=== PATIENT | female | born 1960 | race Caucasian/White ===

== ENCOUNTER 2017-08-22 09:21 | Observation (INO) | payer OTHER ==
[~2017-08-22] VITALS: Ht 162.6 cm; Wt 85.5 kg
[~2017-08-22 09:21] MED LIST: ASPI325; ASPI325 PO; ATOR40TA; ATOR40TA PO; AZIT250 PO; BUME2 PO; CARV6.25; CLOP75; CLOP75 PO; COREG CR; DOXE0.5 PO; DULO60 PO; FAMO20 PO; FLUO20; FLUO20 PO; FURO20; FURO20 PO; FURO40; GABA100 PO; GLIM4; HYDACE10B PO; HYDACE5 PO; HYDACE5325 PO; INSDET100; INSLI100I SC; INSR10I; LAMO100 PO; LAMO25 PO; LEVFLO500 PO; LEVSOD25 PO; LITH300C PO; LOSA50 PO; METF500; MILRINONE; MULVITMIND PO; Myfortic360 MG PO; OXYC5 PO; POTCHL10ER PO; POTCHL20ER PO; PROCODE120 PO; Plavix75 MG PO; Prozac40 MG PO; SLO-MAG PO; SPIR25; SPIR25 PO; Synthroid25 MCG PO; TACR1 PO; VALS80 PO; [UNRECOGNIZED DRUG - OTHER]
[2017-08-22 10:42] LABS: BASOPHILS ABSOLUTE AUTO 0.05 K/mm3 (0.00-0.23); BASOPHILS PERCENT AUTO 1 % (0-2); EOSINOPHILS ABSOLUTE AUTO 0.12 K/mm3 (0.00-0.68); EOSINOPHILS PERCENT AUTO 2 % (0-6); Hematocrit 38.7 % (33.0-51.0); Hemoglobin 12.5 g/dL (11.5-16.0); IMMATURE GRAN ABSOLUTE AUTO 0.05 K/mm3 (0.00-0.10); IMMATURE GRAN PERCENT AUTO 1 % (0-1); LYMPHOCYTES ABSOLUTE AUTO 2.39 K/mm3 (0.84-5.20); LYMPHOCYTES PERCENT AUTO 34 % (21-46); MONOCYTES ABSOLUTE AUTO 0.53 K/mm3 (0.16-1.47); MONOCYTES PERCENT AUTO 8 % (4-13); Mean Corpuscular HGB 27.7 pg (26.0-34.0); Mean Corpuscular HGB Conc 32.3 g/dL (31.5-36.5); Mean Corpuscular Volume 86 fL (80-100); Mean Platelet Volume 9.1 fL (9.1-12.4); NEUTROPHILS ABSOLUTE AUTO 3.83 K/mm3 (1.96-9.15); NEUTROPHILS PERCENT AUTO 55 % (41-73); Platelet Count 363 K/mm3 (150-400); RDW Coefficient Variation 12.6 % (11.7-14.2); RDW Standard Deviation 39.4 fL (35.1-46.3); Red Blood Cell Count 4.51 M/mm3 (3.80-5.20); White Blood Cell Count 6.97 K/mm3 (4.00-11.30)
[2017-08-22 10:57] LABS: International Normalized Ratio 0.95; Prothrombin Time Results 9.9 Sec (9.7-11.5)
[2017-08-22 11:00] LABS: Albumin, Blood 3.4 g/dL (3.4-5.0); Albumin/Globulin Ratio 0.8 (0.8-1.8); Bilirubin, Total 0.3 mg/dL (0.1-1.0); Bun/Creatinine Ratio 16.9 (12.0-20.0); Calcium, Blood 9.2 mg/dL (8.5-10.1); Creatinine, Blood 1.72 mg/dL (0.40-1.00); Total Protein, Blood 7.4 g/dL (6.4-8.2)
[2017-08-23] MEDS ORDERED: AMLO5 PO (10:38)
[2017-08-23] MEDS ORDERED: VICTOZA 3-0.6 MG/0.1 SC (10:38)
[2017-10-30] MEDS ORDERED: CLOP75 PO (11:49)
[2018-05-07] MEDS ORDERED: [UNRECOGNIZED DRUG - CODE] PO (17:51)
[2018-05-08] MEDS ORDERED: ASPI81CH PO (13:22)
== END 2017-08-23 11:35 | disposition home or self-care (01) ==
LOC: ER 09:21 → MEDS 09:22 → ER 11:01 → MEDS 11:01
PROVIDERS: Emergency Medicine
DX: I63.9 Cerebral infarction, unspecified (principal); G81.91 Hemiplegia, unspecified affecting right dominant side; E11.22 Type 2 diabetes mellitus with diabetic chronic kidney disease; E11.21 Type 2 diabetes mellitus with diabetic nephropathy; I12.9 Hypertensive chronic kidney disease with stage 1 through stage 4 chronic kidney disease, or unspecified chronic kidney disease; N18.3 Chronic kidney disease, stage 3 (moderate); E89.0 Postprocedural hypothyroidism; I25.2 Old myocardial infarction; E78.5 Hyperlipidemia, unspecified; I25.10 Atherosclerotic heart disease of native coronary artery without angina pectoris; F32.9 Major depressive disorder, single episode, unspecified; N28.9 Disorder of kidney and ureter, unspecified; Z79.4 Long term (current) use of insulin; Z94.1 Heart transplant status; Z79.899 Other long term (current) drug therapy; Z88.2 Allergy status to sulfonamides; Z88.8 Allergy status to other drugs, medicaments and biological substances; Z90.49 Acquired absence of other specified parts of digestive tract; Z90.89 Acquired absence of other organs; Z95.5 Presence of coronary angioplasty implant and graft; Z95.810 Presence of automatic (implantable) cardiac defibrillator; Z98.890 Other specified postprocedural states; Z87.891 Personal history of nicotine dependence
CPT/HCPCS: 36415; 70450; 71046; 80053; 82947; 85025; 85610; 85730; 93005; 93010; 97161; 99285; G0378; G8978; G8979; G8980; J7507; J7517

== ENCOUNTER 2017-10-30 11:13 | Day surgery (SDC) | payer OTHER ==
[~2017-10-30] VITALS: Ht 160 cm; Wt 89.8 kg
[~2017-10-30 11:13] MED LIST changes: +AMLO5 PO; +VICTOZA 3-0.6 MG/0.1 SC
[2017-10-30] MEDS ORDERED: CLOP75 (11:49)
== END 2017-10-30 13:14 | disposition home or self-care (01) ==
LOC: ORSCSDS 11:13
PROVIDERS: Internal Medicine Gastroenterology
PROC: 0DBN8ZX Excision of Sigmoid Colon, Via Natural or Artificial Opening Endoscopic, Diagnostic (ICD-10-PCS; principal; 2017-10-30 12:45)
PROC: 0DBL8ZX Excision of Transverse Colon, Via Natural or Artificial Opening Endoscopic, Diagnostic (ICD-10-PCS; principal; 2017-10-30 12:45)
PROC: 0DBK8ZX Excision of Ascending Colon, Via Natural or Artificial Opening Endoscopic, Diagnostic (ICD-10-PCS; principal; 2017-10-30 12:45)
PROC: 0DBE8ZX Excision of Large Intestine, Via Natural or Artificial Opening Endoscopic, Diagnostic (ICD-10-PCS; principal; 2017-10-30 12:45)
DX: Z12.11 Encounter for screening for malignant neoplasm of colon (principal); D12.2 Benign neoplasm of ascending colon; D12.3 Benign neoplasm of transverse colon; D12.5 Benign neoplasm of sigmoid colon; E11.9 Type 2 diabetes mellitus without complications; J44.9 Chronic obstructive pulmonary disease, unspecified; I10 Essential (primary) hypertension; Z95.0 Presence of cardiac pacemaker; I50.9 Heart failure, unspecified; I25.2 Old myocardial infarction; Z87.891 Personal history of nicotine dependence; Z79.4 Long term (current) use of insulin; Z79.899 Other long term (current) drug therapy; E66.9 Obesity, unspecified; Z68.33 Body mass index [BMI] 33.0-33.9, adult
CPT/HCPCS: 82947; 88305

== ENCOUNTER 2019-10-10 13:46 | Emergency (ER) | payer BC, OTHER ==
[~2019-10-10] VITALS: Ht 157.5 cm; Wt 83.9 kg
[~2019-10-10 13:46] MED LIST changes: +ASPI81CH PO; +[UNRECOGNIZED DRUG - CODE] PO
[2019-10-10 14:31] LABS: BASOPHILS ABSOLUTE AUTO 0.05 K/mm3 (0.00-0.23); BASOPHILS PERCENT AUTO 1 % (0-2); EOSINOPHILS ABSOLUTE AUTO 0.14 K/mm3 (0.00-0.68); EOSINOPHILS PERCENT AUTO 2 % (0-6); Hematocrit 36.8 % (33.0-51.0); Hemoglobin 11.6 g/dL (11.5-16.0); IMMATURE GRAN ABSOLUTE AUTO 0.02 K/mm3 (0.00-0.10); IMMATURE GRAN PERCENT AUTO 0 % (0-1); LYMPHOCYTES ABSOLUTE AUTO 2.08 K/mm3 (0.84-5.20); LYMPHOCYTES PERCENT AUTO 28 % (21-46); MONOCYTES ABSOLUTE AUTO 0.73 K/mm3 (0.16-1.47); MONOCYTES PERCENT AUTO 10 % (4-13); Mean Corpuscular HGB 27.8 pg (26.0-34.0); Mean Corpuscular HGB Conc 31.5 g/dL (31.5-36.5); Mean Corpuscular Volume 88 fL (80-100); Mean Platelet Volume 9.4 fL (9.1-12.4); NEUTROPHILS ABSOLUTE AUTO 4.36 K/mm3 (1.96-9.15); NEUTROPHILS PERCENT AUTO 59 % (41-73); Platelet Count 338 K/mm3 (150-400); RDW Coefficient Variation 12.6 % (11.7-14.2); RDW Standard Deviation 40.9 fL (35.1-46.3); Red Blood Cell Count 4.18 M/mm3 (3.80-5.20); White Blood Cell Count 7.38 K/mm3 (4.00-11.30)
[2019-10-10 14:48] LABS: Albumin, Blood 3.5 g/dL (3.4-5.0); Bilirubin, Total 0.4 mg/dL (0.1-1.0); Bun/Creatinine Ratio 15.8 (12.0-20.0); Creatinine, Blood 2.59 mg/dL (0.40-1.00); Globulin, Blood 3.6 g/dL (2.2-4.0); Potassium, Blood 4.6 mmol/L (3.5-5.5); Total Protein, Blood 7.1 g/dL (6.4-8.2)
== END 2019-10-10 16:17 | disposition home or self-care (01) ==
LOC: ER 13:46
PROVIDERS: Nurse Practitioner
DX: R47.01 Aphasia (principal); E11.9 Type 2 diabetes mellitus without complications; I25.2 Old myocardial infarction; I11.0 Hypertensive heart disease with heart failure; I50.9 Heart failure, unspecified; Z94.1 Heart transplant status; Z86.73 Personal history of transient ischemic attack (TIA), and cerebral infarction without residual deficits; Z87.891 Personal history of nicotine dependence; Z88.2 Allergy status to sulfonamides; Z88.8 Allergy status to other drugs, medicaments and biological substances; Z79.4 Long term (current) use of insulin; Z79.899 Other long term (current) drug therapy; Z79.82 Long term (current) use of aspirin
CPT/HCPCS: 36415; 70450; 80053; 85025; 93005; 93010; 99285-25

== ENCOUNTER 2020-09-24 18:01 | Observation (INO) | payer OTHER ==
[~2020-09-24] VITALS: Ht 160 cm; Wt 80.6 kg
[~2020-09-24 18:01] MED LIST changes: -ASPI81CH PO; +Aspirin EC81 MG PO; +Hair, Skin & N1 EACH PO; -MULVITMIND PO
[2020-09-24 19:06] LABS: BASOPHILS ABSOLUTE AUTO 0.01 K/mm3 (0.00-0.23); BASOPHILS PERCENT AUTO 0 % (0-2); EOSINOPHILS ABSOLUTE AUTO 0.01 K/mm3 (0.00-0.68); EOSINOPHILS PERCENT AUTO 0 % (0-6); Hematocrit 34.1 % (33.0-51.0); Hemoglobin 10.8 g/dL (11.5-16.0); IMMATURE GRAN ABSOLUTE AUTO 0.02 K/mm3 (0.00-0.10); IMMATURE GRAN PERCENT AUTO 0 % (0-1); LYMPHOCYTES ABSOLUTE AUTO 2.11 K/mm3 (0.84-5.20); LYMPHOCYTES PERCENT AUTO 37 % (21-46); MONOCYTES ABSOLUTE AUTO 0.74 K/mm3 (0.16-1.47); MONOCYTES PERCENT AUTO 13 % (4-13); Mean Corpuscular HGB 26.9 pg (26.0-34.0); Mean Corpuscular HGB Conc 31.7 g/dL (31.5-36.5); Mean Corpuscular Volume 85 fL (80-100); Mean Platelet Volume 9.6 fL (9.1-12.4); NEUTROPHILS ABSOLUTE AUTO 2.78 K/mm3 (1.96-9.15); NEUTROPHILS PERCENT AUTO 49 % (41-73); Platelet Count 305 K/mm3 (150-400); RDW Coefficient Variation 13.3 % (11.7-14.2); RDW Standard Deviation 41.9 fL (35.1-46.3); Red Blood Cell Count 4.01 M/mm3 (3.80-5.20); White Blood Cell Count 5.67 K/mm3 (4.00-11.30)
[2020-09-24 19:37] LABS: Albumin, Blood 3.8 g/dL (3.4-5.0); Bilirubin, Total 0.3 mg/dL (0.1-1.0); Bun/Creatinine Ratio 17.4 (12.0-20.0); Calcium, Blood 8.7 mg/dL (8.5-10.1); Creatinine, Blood 3.11 mg/dL (0.40-1.00); Globulin, Blood 3.8 g/dL (2.2-4.0); Potassium, Blood 4.2 mmol/L (3.5-5.5); Total Protein, Blood 7.6 g/dL (6.4-8.2)
[2020-09-24 19:55] LABS: Magnesium, Blood 1.6 mg/dL (1.6-2.4); Troponin I <0.015 ng/mL (0.000-0.040)
[2020-09-24 20:15] LABS: Influenza A, PCR NEGATIVE (NEGATIVE); Influenza B, PCR NEGATIVE (NEGATIVE); Resp Syncytial Virus, PCR NEGATIVE (NEGATIVE)
[2020-09-24 20:17] LABS: Source, Urine Clean Catch
[2020-09-24 20:18] LABS: SARS-Cov-2 (COVID-19) PCR, MMC POSITIVE (NEGATIVE)
[2020-09-24 20:25] LABS: Bilirubin, Urine Neg (Neg); Blood, Urine 3+ (Neg); Glucose Qualitative, Urine Neg (Neg); Ketones, Urine Neg (Neg); Leukocyte Esterase, Urine 2+ (Neg); Nitrite, Urine Neg (Neg); Protein, Urine 4+ (Neg); Urobilinogen, Urine NORM (Normal)
[2020-09-24 20:31] LABS: Appearance, Urine Hazy (Clear); Color, Urine Pale Yellow (P-Yellow)
[2020-09-24 20:39] LABS: WBC Cast 0-2 /lpf (0)
[2020-09-24 20:41] LABS: Bacteria Many /hpf; Red Blood Cells, Urine 0-2 /hpf (0-2); Squamous Epithelial Cells Few /hpf (Few)
[2020-09-24 20:42] LABS: Hyaline Casts 0-2 /lpf (0-2)
[2020-09-24] MEDS ORDERED: VITAMIN D5000 UNIT PO (21:40)
[2020-09-24] MEDS ORDERED: LIPITOR80 MG PO (21:41)
[2020-09-24] MEDS ORDERED: LOSARTAN POTASS25 M2 PO (21:42)
[2020-09-24] MEDS ORDERED: EZETIMIBE10 M6 PO (21:42)
[2020-09-24] MEDS ORDERED: LAMOTRIGINE100 M1 PO (21:42)
[2020-09-24] MEDS ORDERED: MYCOPHENOLIC A PO (21:44)
[2020-09-24] MEDS ORDERED: TACROLIMUS PO (21:46)
--- NOTE | 2020-09-25 04:25 | NUR ---
SHIFT SUMMARY ADMITTED FROM ER THIS SHIFT. COVID 19+ INFECTION/IMMUNOSUPPRESSED/SOB. FULL CODE. CONTACT PRECAUTIONS. GENTLE IV FLUID REHYDRATION GIVEN IN ER, FINISHING UP LAST OF THOSE TWO BAGS ON FLOOR. HX OF HEART TRANSPLANT IN 2010. CHEST XRAY REVEALS POSSIBLE RT LOWER LOBE PNEUMONIA. UTI IS ALSO POSSIBLE BUT PT DENIES S/SX. PLAN IS FOR NURSING STAFF TO PERFORM AN AMBULATORY O2 SATURATION TRIAL TODAY. SHE IS ON PLAVIX. SHE IS A&O X4, INDEPENDENT. PAIN MEDICATION ADMINISTERED 1X THIS SHIFT, NAUSEA MEDICATION ADMINISTERED 1X THIS SHIFT.
--- NOTE | 2020-09-25 04:38 | NUR ---
RETAIL ASSET PROTECTION SPECIALIST/CTA I HAVE READ THIS RETAIL ASSET PROTECTION SPECIALIST'S DOCUMENTATION AND HAVING PERFORMED MY OWN ASSESSMENT ON THE PT, I CONCUR WITH HER DOCUMENTATION. DARIA.CLC
[2020-09-25 05:14] LABS: BASOPHILS ABSOLUTE AUTO 0.01 K/mm3 (0.00-0.23); BASOPHILS PERCENT AUTO 0 % (0-2); EOSINOPHILS ABSOLUTE AUTO 0.02 K/mm3 (0.00-0.68); EOSINOPHILS PERCENT AUTO 1 % (0-6); Hematocrit 31.5 % (33.0-51.0); IMMATURE GRAN ABSOLUTE AUTO 0.01 K/mm3 (0.00-0.10); IMMATURE GRAN PERCENT AUTO 0 % (0-1); LYMPHOCYTES ABSOLUTE AUTO 1.52 K/mm3 (0.84-5.20); LYMPHOCYTES PERCENT AUTO 39 % (21-46); MONOCYTES ABSOLUTE AUTO 0.51 K/mm3 (0.16-1.47); MONOCYTES PERCENT AUTO 13 % (4-13); Mean Corpuscular HGB 27.5 pg (26.0-34.0); Mean Corpuscular HGB Conc 31.7 g/dL (31.5-36.5); Mean Corpuscular Volume 87 fL (80-100); Mean Platelet Volume 9.9 fL (9.1-12.4); NEUTROPHILS ABSOLUTE AUTO 1.81 K/mm3 (1.96-9.15); NEUTROPHILS PERCENT AUTO 47 % (41-73); Platelet Count 230 K/mm3 (150-400); RDW Coefficient Variation 13.4 % (11.7-14.2); Red Blood Cell Count 3.64 M/mm3 (3.80-5.20); White Blood Cell Count 3.88 K/mm3 (4.00-11.30)
[2020-09-25 05:36] LABS: Albumin/Globulin Ratio 0.9 (0.8-1.8); Bilirubin, Total 0.4 mg/dL (0.1-1.0); Bun/Creatinine Ratio 17.6 (12.0-20.0); Calcium, Blood 8.4 mg/dL (8.5-10.1); Creatinine, Blood 2.79 mg/dL (0.40-1.00); Globulin, Blood 3.4 g/dL (2.2-4.0); Potassium, Blood 3.9 mmol/L (3.5-5.5); Total Protein, Blood 6.4 g/dL (6.4-8.2)
--- NOTE | 2020-09-25 17:40 | NUR ---
RISING BLOOD SUGARS CALLED DR. JIMENEZ ABOUT RISING BLOOD SUGARS. RECOMMENDED CHANGE IN CORRECTION SCALE. T.O. FROM DR. JIMENEZ TO CHANGE TO HIGH CS AC AND GIVE 10 U LANTUS AT BEDTIME. EMAR UPDATED.
--- NOTE | 2020-09-25 18:07 | NUR ---
Shift Summary A/Ox4, pleasant and cooperative with care. Up independently in room. Calls for needs appropriately. Medicated for aches/pain in BLE x 3 per EMAR with good effect. Also medicated x 1 for nausea. Appetite is good. Oxygen sats checked while ambulating 50 feet in room, patient maintained 97-98% on RA with activity though did report some shortness of breath. Xarelto for DVT prophylaxis. No acute changes, WCTM.
--- NOTE | 2020-09-26 05:13 | NUR ---
CITY COUNCIL MEMBER SUMMARY NO ACUTE CHANGES THIS SHIFT. PT AAOX4 AND INDEPENDENT IN ROOM. PLEASANT AND COOPERATIVE. REMAINS ON RA WITH O2 SATS MAINTAINING >95%. PT REPORTED SOME CHILLS AT START OF SHIFT BUT WAS AFEBRILE. MEDICATED FOR HIP AND LEG PAIN X1 WITH FENTANYL 50 MCG. CBG AT HS WAS >400. GIVEN SCHEDULED 10 UNITS OF SEMGLEE AND RECIEVED ADDITIONAL ORDER FROM HOSPITALIST DWAYNE MODI FOR AN ADDITIONAL 10 UNITS OF HUMALOG. VSS, WILL CONTINUE TO MONITOR.
[2020-09-26 08:50] LABS: Bun/Creatinine Ratio 16.2 (12.0-20.0); Calcium, Blood 8.3 mg/dL (8.5-10.1); Creatinine, Blood 2.65 mg/dL (0.40-1.00); Potassium, Blood 4.9 mmol/L (3.5-5.5)
[2020-09-26] MEDS ORDERED: XARELTO20 MG PO (11:18)
--- NOTE | 2020-09-26 11:51 | NUR ---
Discharge Summary AOx4, discharge to home. Reviewed discharge paperwork with patient, no questions at this time. Copy given. Med faxed to [facility]. IV removed, WNL. Personal belongings sent home. Escorted by this RN via w/c. Personal vehicle for transport.
== END 2020-09-26 11:43 | disposition home or self-care (01) ==
LOC: ER 18:01 → MEDS 18:02 → ENPENDDIS 09-26 10:57 → MEDS 09-26 11:43
PROVIDERS: Emergency Medicine; Internal Medicine; Physician Assistant; ADMIT Internal Medicine
DX: U07.1 COVID-19 (principal); N17.9 Acute kidney failure, unspecified; I12.9 Hypertensive chronic kidney disease with stage 1 through stage 4 chronic kidney disease, or unspecified chronic kidney disease; E11.22 Type 2 diabetes mellitus with diabetic chronic kidney disease; N18.4 Chronic kidney disease, stage 4 (severe); I25.2 Old myocardial infarction; E78.5 Hyperlipidemia, unspecified; E86.0 Dehydration; E89.0 Postprocedural hypothyroidism; Z94.1 Heart transplant status; Z86.73 Personal history of transient ischemic attack (TIA), and cerebral infarction without residual deficits; Z79.4 Long term (current) use of insulin; Z79.82 Long term (current) use of aspirin; Z79.02 Long term (current) use of antithrombotics/antiplatelets; Z88.2 Allergy status to sulfonamides; Z88.8 Allergy status to other drugs, medicaments and biological substances; Z95.5 Presence of coronary angioplasty implant and graft
CPT/HCPCS: 0241U; 36415; 71046; 80048; 80053; 81001; 82947; 83605; 83690; 83735; 83880; 84145; 84484; 85025; 87040; 87077; 87086; 87186; 93005; 93010; 96361; 96365; 96375; 96376; 99285-25; A9270; G0378; J0696; J2270; J2405; J3010; J7120; J7507

== ENCOUNTER 2020-09-28 07:52 | Emergency (ER) | payer OTHER ==
[~2020-09-28] VITALS: Ht 160 cm; Wt 78.0 kg
[~2020-09-28 07:52] MED LIST changes: +EZETIMIBE10 M6 PO; +LAMOTRIGINE100 M1 PO; +LIPITOR80 MG PO; +LOSARTAN POTASS25 M2 PO; +MYCOPHENOLIC A PO; +TACROLIMUS PO; +VITAMIN D5000 UNIT PO; +XARELTO20 MG PO
[2020-09-28 08:45] LABS: BASOPHILS ABSOLUTE AUTO 0.02 K/mm3 (0.00-0.23); BASOPHILS PERCENT AUTO 0 % (0-2); EOSINOPHILS ABSOLUTE AUTO 0.01 K/mm3 (0.00-0.68); EOSINOPHILS PERCENT AUTO 0 % (0-6); Hematocrit 36.5 % (33.0-51.0); Hemoglobin 11.3 g/dL (11.5-16.0); IMMATURE GRAN ABSOLUTE AUTO 0.03 K/mm3 (0.00-0.10); IMMATURE GRAN PERCENT AUTO 0 % (0-1); LYMPHOCYTES ABSOLUTE AUTO 1.13 K/mm3 (0.84-5.20); LYMPHOCYTES PERCENT AUTO 17 % (21-46); MONOCYTES ABSOLUTE AUTO 0.58 K/mm3 (0.16-1.47); MONOCYTES PERCENT AUTO 9 % (4-13); Mean Corpuscular HGB 27.3 pg (26.0-34.0); Mean Corpuscular Volume 88 fL (80-100); Mean Platelet Volume 9.5 fL (9.1-12.4); NEUTROPHILS ABSOLUTE AUTO 5.02 K/mm3 (1.96-9.15); NEUTROPHILS PERCENT AUTO 74 % (41-73); Platelet Count 305 K/mm3 (150-400); RDW Coefficient Variation 13.3 % (11.7-14.2); RDW Standard Deviation 42.9 fL (35.1-46.3); Red Blood Cell Count 4.14 M/mm3 (3.80-5.20); White Blood Cell Count 6.79 K/mm3 (4.00-11.30)
[2020-09-28 09:04] LABS: International Normalized Ratio 1.02; Prothrombin Time Results 10.9 Sec (9.7-11.5)
[2020-09-28 09:15] LABS: Alanine Aminotransfer (ALT/SGP 62 U/L (12-78); Albumin, Blood 3.3 g/dL (3.4-5.0); Albumin/Globulin Ratio 0.8 (0.8-1.8); Alk Phos 141 U/L (50-136); Anion Gap 7 mmol/L (6-16); Aspartate Aminotrans (AST/SGOT 31 U/L (12-37); Bilirubin, Total 0.3 mg/dL (0.1-1.0); Blood Urea Nitrogen 34 mg/dL (8-24); Bun/Creatinine Ratio 13.9 (12.0-20.0); CO2, Blood 23 mmol/L (21-32); Calcium, Blood 8.5 mg/dL (8.5-10.1); Chloride, Blood 111 mmol/L (98-108); Creatinine, Blood 2.45 mg/dL (0.40-1.00); Glomerular Filtration Rate 22 (60-); Glucose, Blood 222 mg/dL (70-99); Potassium, Blood 4.5 mmol/L (3.5-5.5); Sodium, Blood 141 mmol/L (136-145); Total Protein, Blood 7.3 g/dL (6.4-8.2); Troponin I <0.015 ng/mL (0.000-0.040)
[2020-09-28] MEDS ORDERED: PROM25 PO (12:41)
[2020-09-28] MEDS ORDERED: PROC5 PO (12:41)
[2020-09-28] MEDS ORDERED: PHENERGAN25 MG PR (12:41)
[2020-09-28] MEDS ORDERED: ONDA4ODT MM (12:41)
[2020-09-28] MEDS ORDERED: Percocet 5-3251 EACH PO (12:46)
== END 2020-09-28 13:52 | disposition home or self-care (01) ==
LOC: ER 07:52
PROVIDERS: Physician Assistant
DX: U07.1 COVID-19 (principal); J12.82 Pneumonia due to coronavirus disease 2019; R19.7 Diarrhea, unspecified; R11.2 Nausea with vomiting, unspecified; R07.9 Chest pain, unspecified; E11.9 Type 2 diabetes mellitus without complications; E78.5 Hyperlipidemia, unspecified; I11.0 Hypertensive heart disease with heart failure; I50.9 Heart failure, unspecified; Z79.4 Long term (current) use of insulin
CPT/HCPCS: 36415; 71045; 80053; 80197; 83605; 83880; 84145; 84484; 85025; 85610; 85730; 87040; 93005; 93010; 96365; 96375; 96376; 99284-25; J0500; J0696; J2405; J3010; J7030

== ENCOUNTER 2020-09-30 14:57 | Inpatient (IN) | payer OTHER ==
[~2020-09-30] VITALS: Ht 160 cm; Wt 78.0 kg
== END 2020-10-05 13:37 | disposition short-term general hospital (02) | DRG 177 ==
LOC: ER 14:57 → MEDS 14:58
PROVIDERS: ADMIT Internal Medicine
PROC: 8E0ZXY6 Isolation (ICD-10-PCS; principal; 2020-10-03)
PROC: 3E0D73Z Introduction of Anti-inflammatory into Mouth and Pharynx, Via Natural or Artificial Opening (ICD-10-PCS; 2020-10-03)
DX: U07.1 COVID-19 (principal); J12.82 Pneumonia due to coronavirus disease 2019; I13.0 Hypertensive heart and chronic kidney disease with heart failure and stage 1 through stage 4 chronic kidney disease, or unspecified chronic kidney disease; Z94.1 Heart transplant status; N17.9 Acute kidney failure, unspecified; Z96.41 Presence of insulin pump (external) (internal); E78.5 Hyperlipidemia, unspecified; E89.0 Postprocedural hypothyroidism; E66.9 Obesity, unspecified; I50.9 Heart failure, unspecified; N18.9 Chronic kidney disease, unspecified; F41.9 Anxiety disorder, unspecified; E11.22 Type 2 diabetes mellitus with diabetic chronic kidney disease; Z86.73 Personal history of transient ischemic attack (TIA), and cerebral infarction without residual deficits; Z98.890 Other specified postprocedural states; Z90.49 Acquired absence of other specified parts of digestive tract; I25.2 Old myocardial infarction; Z88.8 Allergy status to other drugs, medicaments and biological substances; Z88.2 Allergy status to sulfonamides; Z90.89 Acquired absence of other organs; Z95.5 Presence of coronary angioplasty implant and graft; Z95.810 Presence of automatic (implantable) cardiac defibrillator; Z87.891 Personal history of nicotine dependence; Z79.4 Long term (current) use of insulin; Z79.02 Long term (current) use of antithrombotics/antiplatelets; Z79.899 Other long term (current) drug therapy; Z79.82 Long term (current) use of aspirin; Z68.30 Body mass index [BMI] 30.0-30.9, adult
CPT/HCPCS: 0202U; 36415; 71045; 80048; 80053; 80197; 81001; 82947; 83605; 83880; 84145; 84443; 84484; 85025; 85027; 85379; 85651; 86140; 87040; 87086; 93005; 93010; 94640; 94667; 94760; 94762; 96365; 96375; 96376; 97110; 97161; 99285-25; A9270; G0378; J0360; J0692; J1650; J1940; J2405; J2765; J3010; J7030; J7507

== ENCOUNTER → 2022-04-09 | Outpatient (CLI) | payer OTHER ==
[~2022-04-09] MED LIST changes: +EZET10 PO; +METPHE5 PO; +ONDA4ODT MM; +PHENERGAN25 MG PR; +PROC5 PO; +PROM25 PO; +Percocet 5-3251 EACH PO
== END | disposition home or self-care (01) ==
LOC: LAB SHORT 16:20 → LAB 16:20
PROVIDERS: Hospitalist
DX: Z12.4 Encounter for screening for malignant neoplasm of cervix (principal)
CPT/HCPCS: G0145

== ENCOUNTER 2022-10-24 06:14 | Day surgery (SDC) | payer OTHER ==
[~2022-10-24] VITALS: Ht 160 cm; Wt 79.6 kg
[2022-10-24] MEDS ORDERED: FURO80 (06:34)
[2022-10-24] MEDS ORDERED: ATOR80 (06:35)
[2022-10-24] MEDS ORDERED: EZET10 (06:35)
[2022-10-24] MEDS ORDERED: LEVSOD25 (06:35)
[2022-10-24] MEDS ORDERED: [UNRECOGNIZED DRUG - CODE] (06:38)
[2022-10-24] MEDS ORDERED: METO25ER (06:39)
--- NOTE | 2022-10-24 06:49 | NUR ---
10/24/22 0649 Estefany Reyna TETRACAINE TO RIGHT EYE AT 0635 [place] TO RIGHT EYE [place] 0638 BY [facility].KXW
[2022-10-24 08:02] VITALS: BP 114/79
--- NOTE | 2022-10-24 08:21 | NUR ---
10/24/22 0821 Corona Huynh IV REMOVED.
== END 2022-10-24 08:20 | disposition home or self-care (01) ==
LOC: ORSCSDS 06:14
PROVIDERS: Ophthalmology
PROC: 08DJ3ZZ Extraction of Right Lens, Percutaneous Approach (ICD-10-PCS; principal; 2022-10-24 07:30)
DX: E11.36 Type 2 diabetes mellitus with diabetic cataract (principal); H25.11 Age-related nuclear cataract, right eye; E03.9 Hypothyroidism, unspecified; I25.2 Old myocardial infarction; Z86.73 Personal history of transient ischemic attack (TIA), and cerebral infarction without residual deficits; G47.33 Obstructive sleep apnea (adult) (pediatric); I12.9 Hypertensive chronic kidney disease with stage 1 through stage 4 chronic kidney disease, or unspecified chronic kidney disease; E11.22 Type 2 diabetes mellitus with diabetic chronic kidney disease; N18.9 Chronic kidney disease, unspecified; Z79.4 Long term (current) use of insulin; Z79.82 Long term (current) use of aspirin; Z79.899 Other long term (current) drug therapy
CPT/HCPCS: 82947; J2001; J2250; J3010; J3301; J7040; V2632

== ENCOUNTER 2022-11-14 07:30 | Day surgery (SDC) | payer OTHER ==
[~2022-11-14] VITALS: Ht 160 cm; Wt 79.0 kg
[~2022-11-14 07:30] MED LIST changes: +ATOR80; +EZET10; +FURO80; +LEVSOD25; +METO25ER; +[UNRECOGNIZED DRUG - CODE]
--- NOTE | 2022-11-14 08:45 | NUR ---
11/14/22 0845 Lesvia Magallanes 0819 ADRIENNE 0838
[2022-11-14 09:56] VITALS: BP 170/83
== END 2022-11-14 10:05 | disposition home or self-care (01) ==
LOC: ORSCSDS 07:30
PROVIDERS: Ophthalmology
PROC: 08DK3ZZ Extraction of Left Lens, Percutaneous Approach (ICD-10-PCS; principal; 2022-11-14 09:00)
DX: E11.36 Type 2 diabetes mellitus with diabetic cataract (principal); H25.12 Age-related nuclear cataract, left eye; I13.10 Hypertensive heart and chronic kidney disease without heart failure, with stage 1 through stage 4 chronic kidney disease, or unspecified chronic kidney disease; E11.22 Type 2 diabetes mellitus with diabetic chronic kidney disease; N18.4 Chronic kidney disease, stage 4 (severe); Z86.73 Personal history of transient ischemic attack (TIA), and cerebral infarction without residual deficits; F32.A Depression, unspecified; Z94.1 Heart transplant status; E78.5 Hyperlipidemia, unspecified; E03.9 Hypothyroidism, unspecified; G62.9 Polyneuropathy, unspecified; U09.9 Post COVID-19 condition, unspecified; Z87.891 Personal history of nicotine dependence; Z79.4 Long term (current) use of insulin; Z79.82 Long term (current) use of aspirin; Z79.899 Other long term (current) drug therapy
CPT/HCPCS: 82947; J2250; J3010; J3301; J7040; V2632

== ENCOUNTER 2022-11-20 15:22 | Emergency (ER) | payer OTHER ==
[~2022-11-20] VITALS: Ht 160 cm; Wt 75.3 kg
[2022-11-20 16:00] LABS: BASOPHILS ABSOLUTE AUTO 0.06 K/mm3 (0.00-0.23); BASOPHILS PERCENT AUTO 1 % (0-2); EOSINOPHILS ABSOLUTE AUTO 0.06 K/mm3 (0.00-0.68); EOSINOPHILS PERCENT AUTO 1 % (0-6); Hematocrit 36.4 % (33.0-51.0); IMMATURE GRAN ABSOLUTE AUTO 0.03 K/mm3 (0.00-0.10); IMMATURE GRAN PERCENT AUTO 0 % (0-1); LYMPHOCYTES ABSOLUTE AUTO 2.42 K/mm3 (0.84-5.20); LYMPHOCYTES PERCENT AUTO 23 % (21-46); MONOCYTES ABSOLUTE AUTO 0.72 K/mm3 (0.16-1.47); MONOCYTES PERCENT AUTO 7 % (4-13); Mean Corpuscular HGB 29.1 pg (26.0-34.0); Mean Corpuscular Volume 88 fL (80-100); Mean Platelet Volume 9.8 fL (9.1-12.4); NEUTROPHILS ABSOLUTE AUTO 7.09 K/mm3 (1.96-9.15); NEUTROPHILS PERCENT AUTO 68 % (41-73); Platelet Count 359 K/mm3 (150-400); RDW Coefficient Variation 12.8 % (11.7-14.2); RDW Standard Deviation 41.1 fL (35.1-46.3); Red Blood Cell Count 4.13 M/mm3 (3.80-5.20); White Blood Cell Count 10.38 K/mm3 (4.00-11.30)
[2022-11-20 16:27] LABS: Albumin, Blood 3.5 g/dL (3.4-5.0); Albumin/Globulin Ratio 0.9 (0.8-1.8); Bilirubin, Total 0.3 mg/dL (0.1-1.0); Bun/Creatinine Ratio 9.1 (12.0-20.0); Calcium, Blood 9.3 mg/dL (8.5-10.1); Creatinine, Blood 7.93 mg/dL (0.40-1.00); Globulin, Blood 3.8 g/dL (2.2-4.0); Magnesium, Blood 2.3 mg/dL (1.6-2.4); Potassium, Blood 4.5 mmol/L (3.5-5.5); Total Protein, Blood 7.3 g/dL (6.4-8.2)
[2022-11-20 19:45] VITALS: BP 131/65
== END 2022-11-20 20:47 | disposition home or self-care (01) ==
LOC: ER 15:22
PROVIDERS: Physician Assistant
DX: E86.0 Dehydration (principal); I25.2 Old myocardial infarction; I13.0 Hypertensive heart and chronic kidney disease with heart failure and stage 1 through stage 4 chronic kidney disease, or unspecified chronic kidney disease; E11.22 Type 2 diabetes mellitus with diabetic chronic kidney disease; I50.9 Heart failure, unspecified; N18.9 Chronic kidney disease, unspecified; E78.5 Hyperlipidemia, unspecified; Z79.890 Hormone replacement therapy; Z79.4 Long term (current) use of insulin; Z79.899 Other long term (current) drug therapy; Z88.2 Allergy status to sulfonamides; Z88.8 Allergy status to other drugs, medicaments and biological substances; Z86.73 Personal history of transient ischemic attack (TIA), and cerebral infarction without residual deficits; Z87.891 Personal history of nicotine dependence; Z95.5 Presence of coronary angioplasty implant and graft
CPT/HCPCS: 71046; 80053; 83735; 84100; 84484; 85025; J7030

== ENCOUNTER 2022-12-31 12:48 | Emergency (ER) | payer OTHER ==
[~2022-12-31] VITALS: Ht 160 cm; Wt 74.4 kg
[~2022-12-31 12:48] MED LIST changes: -METO25ER; +METO25ER PO
[2022-12-31 13:49] LABS: BASOPHILS ABSOLUTE AUTO 0.03 K/mm3 (0.00-0.23); BASOPHILS PERCENT AUTO 0 % (0-2); EOSINOPHILS ABSOLUTE AUTO 0.05 K/mm3 (0.00-0.68); EOSINOPHILS PERCENT AUTO 1 % (0-6); Hemoglobin 10.4 g/dL (11.5-16.0); IMMATURE GRAN ABSOLUTE AUTO 0.06 K/mm3 (0.00-0.10); IMMATURE GRAN PERCENT AUTO 1 % (0-1); LYMPHOCYTES ABSOLUTE AUTO 1.93 K/mm3 (0.84-5.20); LYMPHOCYTES PERCENT AUTO 28 % (21-46); MONOCYTES ABSOLUTE AUTO 0.52 K/mm3 (0.16-1.47); MONOCYTES PERCENT AUTO 8 % (4-13); Mean Corpuscular HGB 27.8 pg (26.0-34.0); Mean Corpuscular HGB Conc 32.5 g/dL (31.5-36.5); Mean Corpuscular Volume 86 fL (80-100); Mean Platelet Volume 9.8 fL (9.1-12.4); NEUTROPHILS ABSOLUTE AUTO 4.25 K/mm3 (1.96-9.15); NEUTROPHILS PERCENT AUTO 62 % (41-73); Platelet Count 314 K/mm3 (150-400); RDW Standard Deviation 37.8 fL (35.1-46.3); Red Blood Cell Count 3.74 M/mm3 (3.80-5.20); White Blood Cell Count 6.84 K/mm3 (4.00-11.30)
[2022-12-31 14:19] LABS: Albumin, Blood 3.5 g/dL (3.4-5.0); Bilirubin, Total 0.3 mg/dL (0.1-1.0); Bun/Creatinine Ratio 7.5 (12.0-20.0); Calcium, Blood 8.6 mg/dL (8.5-10.1); Creatinine, Blood 13.3 mg/dL (0.40-1.00); Globulin, Blood 3.5 g/dL (2.2-4.0); Potassium, Blood 4.6 mmol/L (3.5-5.5)
[2022-12-31 14:20] LABS: Source, Urine Clean Catch
[2022-12-31 14:32] LABS: Appearance, Urine Cloudy (Clear); Bilirubin, Urine Neg (Neg); Blood, Urine 3+ (Neg); Glucose Qualitative, Urine 3+ (Neg); Ketones, Urine Neg (Neg); Leukocyte Esterase, Urine 3+ (Neg); Nitrite, Urine Neg (Neg); Protein, Urine 3+ (Neg); Specific Gravity, Urine 1.015 (1.003-1.022); Urobilinogen, Urine NORM (Normal)
[2022-12-31 15:46] LABS: Color, Urine Pale Yellow (P-Yellow)
[2022-12-31 15:48] LABS: Mucus Light (0-Heavy); Squamous Epithelial Cells Mod /hpf (Few); Transitional Epithelial Cells Few /hpf (0-Rare); White Blood Cells, Urine TNTC /hpf (0-5)
[2022-12-31 15:49] LABS: Amorphous Light (0-Heavy); Bacteria Many /hpf
[2022-12-31 20:00] LABS: Influenza A, PCR NEGATIVE (NEGATIVE); Influenza B, PCR NEGATIVE (NEGATIVE); Resp Syncytial Virus, PCR NEGATIVE (NEGATIVE); SARS-Cov-2 (COVID-19) PCR, MMC NEGATIVE (NEGATIVE)
[2022-12-31 20:28] LABS: Body Fluid WBC Count 160 /mm3 (0-999)
--- NOTE | 2022-12-31 20:39 | NUR ---
DIALYSIS-PD CALLED BY DR WHITMORE TO DRAW LAB SAMPLE FROM PD. TOOK A SAMPLE FROM PD PORT PER PROTOCAL. PT SAYS LAST FILL IS 300 ML. BUT ONLY ABLE TO GET SMALL AMT TO DRAIN IN BAG. LABELED AND HAND CARRIED TO LAB.
[2022-12-31 20:46] LABS: Appearance, Body Fluid Clear (Clear); Color, Body Fluid L Yellow (None-Yellow); RBC Count, Body Fluid 5 /mm3 (0-0)
[2022-12-31] MEDS ORDERED: CEFP200 PO (21:59)
[2022-12-31 22:00] VITALS: BP 166/91
[2022-12-31 22:09] LABS: Total Cell Count, Body Fluid 100
[2023-01-02] MEDS ORDERED: MYCOPHENOLIC ACID PO (15:08)
[2023-01-02] MEDS ORDERED: FURO80 PO (15:08)
[2023-01-02] MEDS ORDERED: TACR1 PO (15:09)
[2023-01-02] MEDS ORDERED: HUMALOG100 UNIT/1 SC (15:09)
[2023-01-02] MEDS ORDERED: AMLO5 PO (15:11)
[2023-01-02] MEDS ORDERED: Vitamin D1000 UNI1 PO (15:23)
[2023-01-02] MEDS ORDERED: RAYALDEE30 MCG PO (15:23)
== END 2022-12-31 22:20 | disposition home or self-care (01) ==
LOC: ER 12:48
PROVIDERS: Emergency Medicine; Hospitalist; Student in an Organized Health Care Education/Training Program
DX: R29.898 Other symptoms and signs involving the musculoskeletal system (principal); M79.10 Myalgia, unspecified site; Z88.8 Allergy status to other drugs, medicaments and biological substances; Z88.2 Allergy status to sulfonamides; Z79.899 Other long term (current) drug therapy; Z79.4 Long term (current) use of insulin; E11.9 Type 2 diabetes mellitus without complications; I25.2 Old myocardial infarction; I13.0 Hypertensive heart and chronic kidney disease with heart failure and stage 1 through stage 4 chronic kidney disease, or unspecified chronic kidney disease; I50.9 Heart failure, unspecified; E78.5 Hyperlipidemia, unspecified; N18.9 Chronic kidney disease, unspecified; Z87.891 Personal history of nicotine dependence
CPT/HCPCS: 0241U; 71045; 80053; 80197; 81001; 82550; 83880; 84484; 85025; 87077; 87086; 87186; 87205; 89051; 96361; 96374; 99284-25; A9270; J2405; J7120

== ENCOUNTER 2023-01-09 13:11 | Emergency (ER) | payer OTHER ==
[~2023-01-09] VITALS: Ht 160 cm; Wt 74.4 kg
[~2023-01-09 13:11] MED LIST changes: +CEFP200 PO; +CEPH500 PO; +FURO40 PO; +FURO80 PO; +HUMALOG100 UNIT/1 SC; +METO50 PO; +MYCOPHENOLIC ACID PO; +NEPHRO VITAMIN0.8 MG PO; +RAYALDEE30 MCG PO; +SEVEC800 PO; +Vitamin D1000 UNI1 PO
[2023-01-09 15:02] LABS: BASOPHILS ABSOLUTE AUTO 0.03 K/mm3 (0.00-0.23); BASOPHILS PERCENT AUTO 0 % (0-2); EOSINOPHILS ABSOLUTE AUTO 0.04 K/mm3 (0.00-0.68); EOSINOPHILS PERCENT AUTO 1 % (0-6); Hematocrit 23.4 % (33.0-51.0); Hemoglobin 7.5 g/dL (11.5-16.0); IMMATURE GRAN ABSOLUTE AUTO 0.04 K/mm3 (0.00-0.10); IMMATURE GRAN PERCENT AUTO 1 % (0-1); LYMPHOCYTES ABSOLUTE AUTO 1.28 K/mm3 (0.84-5.20); LYMPHOCYTES PERCENT AUTO 15 % (21-46); MONOCYTES ABSOLUTE AUTO 1.09 K/mm3 (0.16-1.47); MONOCYTES PERCENT AUTO 13 % (4-13); Mean Corpuscular HGB 27.9 pg (26.0-34.0); Mean Corpuscular HGB Conc 32.1 g/dL (31.5-36.5); Mean Corpuscular Volume 87 fL (80-100); Mean Platelet Volume 9.7 fL (9.1-12.4); NEUTROPHILS ABSOLUTE AUTO 6.05 K/mm3 (1.96-9.15); NEUTROPHILS PERCENT AUTO 71 % (41-73); Platelet Count 304 K/mm3 (150-400); RDW Coefficient Variation 12.3 % (11.7-14.2); RDW Standard Deviation 38.2 fL (35.1-46.3); Red Blood Cell Count 2.69 M/mm3 (3.80-5.20); White Blood Cell Count 8.53 K/mm3 (4.00-11.30)
[2023-01-09 15:31] LABS: Albumin, Blood 2.8 g/dL (3.4-5.0); Albumin/Globulin Ratio 0.9 (0.8-1.8); Bilirubin, Total 0.4 mg/dL (0.1-1.0); Bun/Creatinine Ratio 2.1 (12.0-20.0); Calcium, Blood 8.4 mg/dL (8.5-10.1); Creatinine, Blood 2.8 mg/dL (0.40-1.00); Globulin, Blood 3.1 g/dL (2.2-4.0); Potassium, Blood 4.2 mmol/L (3.5-5.5); Total Protein, Blood 5.9 g/dL (6.4-8.2)
[2023-01-09 18:38] LABS: Adenovirus F 40/41 Not Detected (NOT DETECT); Astrovirus Not Detected (NOT DETECT); Campylobacter Sp Not Detected (NOT DETECT); Cryptosporidium Not Detected (NOT DETECT); Cyclospora Cayetanensis Not Detected (NOT DETECT); E. Coli O157 Not Detected (NOT DETECT); Entamoeba Histolytica Not Detected (NOT DETECT); Enteroaggregative E. coli-EAEC Not Detected (NOT DETECT); Enteropathogenic E. coli-EPEC Not Detected (NOT DETECT); Enterotoxigenic E. coli-ETEC Not Detected (NOT DETECT); Giardia Lamblia Not Detected (NOT DETECT); Norovirus GI/GII Detected (NOT DETECT); Plesiomonas Shigelloides Not Detected (NOT DETECT); Rotavirus A Not Detected (NOT DETECT); Salmonella Sp Not Detected (NOT DETECT); Sapovirus Not Detected (NOT DETECT); Shiga Toxin-prod E. coli-STEC Not Detected (NOT DETECT); Shigella/Enteroin E. coli-EIEC Not Detected (NOT DETECT); Vibrio Cholerae Not Detected (NOT DETECT); Vibrio Sp Not Detected (NOT DETECT); Yersinia Enterocolitica Not Detected (NOT DETECT)
[2023-01-09 19:07] VITALS: BP 142/67
== END 2023-01-09 20:29 | disposition home or self-care (01) ==
LOC: ER 13:11
PROVIDERS: Emergency Medicine
DX: R19.7 Diarrhea, unspecified (principal); I13.2 Hypertensive heart and chronic kidney disease with heart failure and with stage 5 chronic kidney disease, or end stage renal disease; E11.22 Type 2 diabetes mellitus with diabetic chronic kidney disease; N18.6 End stage renal disease; I50.9 Heart failure, unspecified; E78.5 Hyperlipidemia, unspecified; Z99.2 Dependence on renal dialysis; Z79.4 Long term (current) use of insulin; Z79.899 Other long term (current) drug therapy; Z87.891 Personal history of nicotine dependence
CPT/HCPCS: 80053; 85025; 87507; 96374; 96375; 99284-25; J2405

== ENCOUNTER 2023-02-21 13:44 | Inpatient (IN) | payer OTHER, MEDICARE ==
[~2023-02-21] VITALS: Ht 160 cm; Wt 69.5 kg
[2023-02-21 14:31] LABS: BASOPHILS ABSOLUTE AUTO 0.03 K/mm3 (0.00-0.23); BASOPHILS PERCENT AUTO 0 % (0-2); EOSINOPHILS ABSOLUTE AUTO 0.13 K/mm3 (0.00-0.68); EOSINOPHILS PERCENT AUTO 2 % (0-6); Hematocrit 34.6 % (33.0-51.0); Hemoglobin 10.9 g/dL (11.5-16.0); IMMATURE GRAN ABSOLUTE AUTO 0.02 K/mm3 (0.00-0.10); IMMATURE GRAN PERCENT AUTO 0 % (0-1); LYMPHOCYTES ABSOLUTE AUTO 2.22 K/mm3 (0.84-5.20); LYMPHOCYTES PERCENT AUTO 26 % (21-46); MONOCYTES ABSOLUTE AUTO 0.67 K/mm3 (0.16-1.47); MONOCYTES PERCENT AUTO 8 % (4-13); Mean Corpuscular HGB 27.7 pg (26.0-34.0); Mean Corpuscular HGB Conc 31.5 g/dL (31.5-36.5); Mean Corpuscular Volume 88 fL (80-100); Mean Platelet Volume 9.7 fL (9.1-12.4); NEUTROPHILS ABSOLUTE AUTO 5.34 K/mm3 (1.96-9.15); NEUTROPHILS PERCENT AUTO 64 % (41-73); Platelet Count 375 K/mm3 (150-400); RDW Standard Deviation 42.4 fL (35.1-46.3); Red Blood Cell Count 3.93 M/mm3 (3.80-5.20); White Blood Cell Count 8.41 K/mm3 (4.00-11.30)
[2023-02-21 14:48] LABS: Albumin/Globulin Ratio 0.8 (0.8-1.8); Bilirubin, Total 0.4 mg/dL (0.1-1.0); Bun/Creatinine Ratio 3.3 (12.0-20.0); Calcium, Blood 8.9 mg/dL (8.5-10.1); Creatinine, Blood 8.29 mg/dL (0.40-1.00); Globulin, Blood 3.7 g/dL (2.2-4.0); Potassium, Blood 3.5 mmol/L (3.5-5.5); Total Protein, Blood 6.7 g/dL (6.4-8.2)
[2023-02-21] MEDS ORDERED: AMLODIPINE BESYL5 MG PO (17:01)
[2023-02-21] MEDS ORDERED: TRAZ50 PO (17:27)
[2023-02-21 19:28] VITALS: BP 107/67
--- NOTE | 2023-02-21 20:10 | NUR ---
DIALYSIS NOTE MOBILE PET GROOMER IN TO OBTAIN EFFLUENT SAMPLE AND SET UP EVENING CCPD TX. PT SITTING UP IN BED, AT BEDSIDE. CONSENT OBTAINED. CCPD SET ORDERED, PT HAD DRY BELLY AND UNABLE TO COLLECT EFFLUENT SAMPLE AT THIS TIME. DRSG CHANGE COMPLETED, EXIT SITE IN PERFECT OCNDITION. PT CONNECTED TO CYCLER FOR NIGHT TIME PD TX. PLAN TO COLLECT SAMPLE AFTER FIRST DWELL DRAINS. HANDOFF REPORT GIVEN TO PRIMARY CARE RN.
[2023-02-22 02:24] LABS: Automated BF WBC Count 0.021 K/mm3 (0-999)
[2023-02-22 03:08] LABS: RBC Count, Body Fluid 12 /mm3 (0-0)
[2023-02-22 03:33] LABS: Total Cell Count, Body Fluid 100
[2023-02-22 03:34] LABS: Body Fluid WBC Count 21 /mm3 (0-999)
[2023-02-22 03:35] LABS: Appearance, Body Fluid Clear (Clear); Color, Body Fluid No color (None-Yellow)
--- NOTE | 2023-02-22 04:01 | NUR ---
END OF SHIFT SUMMARY PT A&O x4, VSS. PT PLEASANT AND COOPERATIVE WITH CARE PROVIDED. NO C/O OF CP. PT RECEIVED DIALYSIS, TOLERATED IT WELL. PAIN MANAGED WITH FENTANYL. PT STATED SHE USUALLY TAKES TRAZODONE AT BEDTIME; TRAZODONE NOW AVAILABLE FOR PT. PT REQUESTED ZOFRAN FOR NAUSEA. PRN MEDICATIONS EFFECTIVE. PT COMPLIANT WITH SCD's. CALL LIGHT WITHIN REACH, WCTM.
[2023-02-22 04:19] VITALS: BP 110/67
[2023-02-22 05:25] LABS: BASOPHILS ABSOLUTE AUTO 0.04 K/mm3 (0.00-0.23); BASOPHILS PERCENT AUTO 1 % (0-2); EOSINOPHILS ABSOLUTE AUTO 0.21 K/mm3 (0.00-0.68); EOSINOPHILS PERCENT AUTO 3 % (0-6); Hematocrit 30.7 % (33.0-51.0); Hemoglobin 9.7 g/dL (11.5-16.0); IMMATURE GRAN ABSOLUTE AUTO 0.02 K/mm3 (0.00-0.10); IMMATURE GRAN PERCENT AUTO 0 % (0-1); LYMPHOCYTES PERCENT AUTO 34 % (21-46); MONOCYTES ABSOLUTE AUTO 0.69 K/mm3 (0.16-1.47); MONOCYTES PERCENT AUTO 10 % (4-13); Mean Corpuscular HGB 28.4 pg (26.0-34.0); Mean Corpuscular HGB Conc 31.6 g/dL (31.5-36.5); Mean Corpuscular Volume 90 fL (80-100); NEUTROPHILS ABSOLUTE AUTO 3.62 K/mm3 (1.96-9.15); NEUTROPHILS PERCENT AUTO 52 % (41-73); Platelet Count 317 K/mm3 (150-400); RDW Coefficient Variation 13.1 % (11.7-14.2); RDW Standard Deviation 43.1 fL (35.1-46.3); Red Blood Cell Count 3.41 M/mm3 (3.80-5.20); White Blood Cell Count 6.98 K/mm3 (4.00-11.30)
[2023-02-22 06:28] LABS: Anion Gap 11 mmol/L (6-16); Blood Urea Nitrogen 27 mg/dL (8-24); CO2, Blood 25 mmol/L (21-32); Calcium, Blood 8.3 mg/dL (8.5-10.1); Chloride, Blood 99 mmol/L (98-108); Glucose, Blood 231 mg/dL (70-99); Potassium, Blood 3.5 mmol/L (3.5-5.5); Sodium, Blood 135 mmol/L (136-145); Vancomycin, Random 42.8 ug/mL
[2023-02-22 06:29] LABS: Bun/Creatinine Ratio 3.2 (12.0-20.0); Creatinine, Blood 8.39 mg/dL (0.40-1.00); Glomerular Filtration Rate 5 (60-)
--- NOTE | 2023-02-22 07:29 | NUR ---
CRITICAL LAB VALUE: CREATININE WAS 8.[address] MCLAUGHLIN WAS NOTIFIED. CONTINUE TO MONITOR.
[2023-02-22 08:11] VITALS: BP 112/75
--- NOTE | 2023-02-22 09:31 | NUR ---
TO ROOM 332 LEONARD PD DISCONNECT, PT SITTING UP IN BED. A/O. PD DRAINAGE BAG IS GONE. LINE IS DISCONNECTED AND IN SINK. PT WAS UNABLE TO TELL WHO TOOK DRAINAGE BAG. DAY RN DOES NOT KNOW WHERE IT IS. IT WAS NOT IN GARBAGE. UNABLE TO ASSESS EFFLUENT. PT STATES THAT SHE HAS BEEN BEING TREATED FOR PERITONITIS AND HAS BEEN ABX SINCE LAST WEEK. PT DISCONNECTED ASEPTICALLY, TOLERATED WELL. LEFT IN STABLE CONDITION. JANAE
--- NOTE | 2023-02-22 16:51 | NUR ---
THE PATIENT IS A&O X3, FOLLOWS COMMANDS AND IS PLEASENT TO VISIT WITH. THE PATIENT RECEIVED ORDERS TO GET 2 LITES OF FLUID, SO A NEW IV WAS PUT IN TO RELEAVE THE PUMP BEEPING. THE PATIENT'S SPOUSE IN THE ROOM AT THIS TIME VISITIND WITH THE PATIENT, WHILE THE PATIENT IS RESTING, I WILL CONTINUE TO MONITOR.
--- NOTE | 2023-02-22 18:12 | NUR ---
TO ROOM 332 TO START EVENING PD TX. PT IS A&O, AT BEDSIDE. TX INITIATED PER DR WHITMORE'S ORDERS. SITE CLEANED ASEPTICALLY AND INITIATED PER PROTOCOL. PT TOLERATED WELL. STABLE. ABDOMEN SOFT WITH SOME TENDERNESS, SITE IS CLEAN AND CLEAR. JANAE
[2023-02-22 22:16] VITALS: BP 117/74
--- NOTE | 2023-02-23 02:02 | NUR ---
SHIFT SUMMERY. PT RESTING IN BED, PT MEDICATED X 1 SO FAR THIS NIGHT . PT APPEARS TO BE COMFORTABLE AND SLEEPING VERY LIGHT . PT AWAKENS WEHN SHE IS BEING CHECKED ON. CALL LIGHT IN REACH.
[2023-02-23 04:11] VITALS: BP 119/77
[2023-02-23 05:43] LABS: BASOPHILS ABSOLUTE AUTO 0.04 K/mm3 (0.00-0.23); BASOPHILS PERCENT AUTO 1 % (0-2); EOSINOPHILS ABSOLUTE AUTO 0.24 K/mm3 (0.00-0.68); EOSINOPHILS PERCENT AUTO 5 % (0-6); Hematocrit 28.5 % (33.0-51.0); IMMATURE GRAN ABSOLUTE AUTO 0.02 K/mm3 (0.00-0.10); IMMATURE GRAN PERCENT AUTO 0 % (0-1); LYMPHOCYTES ABSOLUTE AUTO 1.87 K/mm3 (0.84-5.20); LYMPHOCYTES PERCENT AUTO 36 % (21-46); MONOCYTES ABSOLUTE AUTO 0.64 K/mm3 (0.16-1.47); MONOCYTES PERCENT AUTO 12 % (4-13); Mean Corpuscular HGB 27.8 pg (26.0-34.0); Mean Corpuscular HGB Conc 31.6 g/dL (31.5-36.5); Mean Corpuscular Volume 88 fL (80-100); Mean Platelet Volume 9.8 fL (9.1-12.4); NEUTROPHILS ABSOLUTE AUTO 2.39 K/mm3 (1.96-9.15); NEUTROPHILS PERCENT AUTO 46 % (41-73); Platelet Count 272 K/mm3 (150-400); RDW Standard Deviation 41.3 fL (35.1-46.3); Red Blood Cell Count 3.24 M/mm3 (3.80-5.20)
[2023-02-23 06:16] LABS: Albumin, Blood 2.4 g/dL (3.4-5.0); Anion Gap 10 mmol/L (6-16); Blood Urea Nitrogen 27 mg/dL (8-24); CO2, Blood 26 mmol/L (21-32); Calcium, Blood 8.2 mg/dL (8.5-10.1); Chloride, Blood 99 mmol/L (98-108); Glucose, Blood 237 mg/dL (70-99); Phosphorus, Blood 5.2 mg/dL (2.5-4.9); Potassium, Blood 3.2 mmol/L (3.5-5.5); Sodium, Blood 135 mmol/L (136-145); Vancomycin, Random 37.2 ug/mL
[2023-02-23 06:19] LABS: Bun/Creatinine Ratio 3.3 (12.0-20.0); Creatinine, Blood 8.26 mg/dL (0.40-1.00); Glomerular Filtration Rate 5 (60-)
[2023-02-23 07:31] VITALS: BP 135/76
--- NOTE | 2023-02-23 08:32 | NUR ---
PD RN TO PT ROOM AT APPROX 0700AM TO DISCONNECT CCPD NIGHT TX. I DRAIN WAS 1007 ML, TOTAL UF WAS 151ML, AVG DWELL 1:15, LOST DWELL 1:34. PT WAS DISCONNECTED AT APPROX 0730AM.
[2023-02-23 15:28] VITALS: BP 134/69
--- NOTE | 2023-02-23 17:04 | NUR ---
SHIFT SUMMARY: PT A&O X4. PT PLEASANT AND COOPERATIVE WITH CARE. PT HAVING 6-7/10 ABD PAIN THIS SHIFT. MEDICATED PER EMAR. PT STATED SHE HAS NOT HAD BM FOR SEVERAL DAYS. PRN BOWEL MEDS ORDERED AND GIVEN. PT ABLE TO PRODUCE 200ML URINE AND HAVE A MEDIUM SIZED BM THIS AFTERNOON. INSULIN COVERAGE ADDED TO EMAR DUE TO INABILITY TO OBTAIN OWN INSULIN PUMP. 2L LR COMPLETED THIS SHIFT. PT RECEIVED VISIT FROM DR. Rollins THIS AFTERNOON/EVENING. PER PT, STATES HE IS OKAY FOR HER TO D/C BUT NEEDS HOSPITALIST APPROVAL. DR. MCLAUGHLIN CALLED AND PT TO D/C THIS EVENING. CALL LIGHT IN REACH. BED IN LOWEST POSITION. WILL CONTINUE TO MONITOR.
[2023-02-23] MEDS ORDERED: SEVEC800 PO (17:46)
--- NOTE | 2023-02-23 18:50 | NUR ---
PD RN TO PT RM 332 AT APPROX 1800 TO CONNECT PT TO CCPD TX. BEDSIDE RN NOTIFIED ME THAT PT HAD DISCHARGE ORDERS AND WAS UNSURE IF CCPD NIGHT DIALYSIS TX NEEDED TO BE COMPLETED 1ST. i NOTIFIED HER THAT THE PT SHOULD HAVE SUPPLIES AND SET UP TO DO TX AT HOME. SPOKE WITH PT AND HER ABOUT THIS [facility] ENSURED THAT THEY WOULD HAVE THE SUPPLIES NEEDED FOR TX. PT WAS WORRIED ABOUT A NEW PERSCRIPTION ORDER THAT SHE WAS WAITING FOR. SPOKE TO DR WHITMORE WITH [facility] AND HE NOTIFIED ME THAT SHE WAS OK TO D/C AND NEW ORDERS WERE PENDING AND WILL BE GONE OVER IN THE DAYS FOLLOWING D/C. COLLECTED SUPPLIES TO SEND HER HOME WITH AND WAS NOTIFIED THAT PT WAS GOING TO STAY THROUGHOUT THE NIGHT AND POSSIBLY DISCHARGE TOMORROW. CONNECTED PT AT APPROX 1840PM.
[2023-02-23 19:48] VITALS: BP 136/75
--- NOTE | 2023-02-24 02:08 | NUR ---
ROBERT WARREN, PT RESTING IN BED PT MEDICATED FOR PAIN TO ABD AND LEGS X2. CALL LIGHT IN REACH.
[2023-02-24 05:56] LABS: BASOPHILS ABSOLUTE AUTO 0.03 K/mm3 (0.00-0.23); BASOPHILS PERCENT AUTO 1 % (0-2); EOSINOPHILS ABSOLUTE AUTO 0.38 K/mm3 (0.00-0.68); EOSINOPHILS PERCENT AUTO 7 % (0-6); Hematocrit 28.4 % (33.0-51.0); Hemoglobin 9.3 g/dL (11.5-16.0); IMMATURE GRAN ABSOLUTE AUTO 0.01 K/mm3 (0.00-0.10); IMMATURE GRAN PERCENT AUTO 0 % (0-1); LYMPHOCYTES ABSOLUTE AUTO 1.85 K/mm3 (0.84-5.20); LYMPHOCYTES PERCENT AUTO 34 % (21-46); MONOCYTES ABSOLUTE AUTO 0.61 K/mm3 (0.16-1.47); MONOCYTES PERCENT AUTO 11 % (4-13); Mean Corpuscular HGB 28.3 pg (26.0-34.0); Mean Corpuscular HGB Conc 32.7 g/dL (31.5-36.5); Mean Corpuscular Volume 86 fL (80-100); Mean Platelet Volume 9.9 fL (9.1-12.4); NEUTROPHILS ABSOLUTE AUTO 2.59 K/mm3 (1.96-9.15); NEUTROPHILS PERCENT AUTO 47 % (41-73); Platelet Count 287 K/mm3 (150-400); RDW Coefficient Variation 12.9 % (11.7-14.2); RDW Standard Deviation 40.6 fL (35.1-46.3); Red Blood Cell Count 3.29 M/mm3 (3.80-5.20); White Blood Cell Count 5.47 K/mm3 (4.00-11.30)
[2023-02-24 06:30] LABS: Albumin, Blood 2.4 g/dL (3.4-5.0); Anion Gap 9 mmol/L (6-16); Blood Urea Nitrogen 25 mg/dL (8-24); CO2, Blood 26 mmol/L (21-32); Calcium, Blood 8.5 mg/dL (8.5-10.1); Chloride, Blood 102 mmol/L (98-108); Glucose, Blood 207 mg/dL (70-99); Phosphorus, Blood 4.7 mg/dL (2.5-4.9); Potassium, Blood 3.8 mmol/L (3.5-5.5); Sodium, Blood 137 mmol/L (136-145); Vancomycin, Random 34.9 ug/mL
[2023-02-24 06:32] LABS: Bun/Creatinine Ratio 3.1 (12.0-20.0); Creatinine, Blood 8.01 mg/dL (0.40-1.00); Glomerular Filtration Rate 5 (60-)
--- NOTE | 2023-02-24 06:40 | NUR ---
CALL FROM LAB, CRITICAL CREATIN TRENDING DDOWN 02/24 8.01, 02/23 8.26, 91 8.39.
[2023-02-24 07:57] VITALS: BP 143/76
--- NOTE | 2023-02-24 08:19 | NUR ---
DIALYSIS NOTE CCPD TX COMPLETED PRESCRIBED. IDRAIN 2507, TUF (-[phone]), AVG DWELL 1:02. PT REPORTS SHE HAD SEVERAL "LOW DRAIN" ALARMS DURING THE NIGHT AND COMPLAINED OF SEVERE DRAIN PAIN WITH LAST DRAIN. PT DISCONECTED PER P&P, TRANSFER SET CLOSED, CAPPED AND SECURE. PT ANTICIPATED D/C HOME TODAY. HANDOFF REPORT GIVEN TO STORMY SILVERMAN RN.
[2023-02-24] MEDS ORDERED: Norco 5-325 Ta1 EACH PO (10:08)
--- NOTE | 2023-02-24 11:32 | NUR ---
PT D/C @1030 VIA WHEELCHAIR WITH . PT STILL HAD SOME ABD PAIN PRIOR TO D/C. SENT HARD SCRIPT WITH PT FOR [employer]. MEDICATIONS FAXED TO [facility] [address]. DIALYSIS SENT PT HOME WITH 2 BAG FLUIDS PLACED IN PT CAR. PT HAD LARGE BM PRIOR TO D/C AND STATED SHE IS BEGINNING TO FEEL THE URGE TO URINATE. IV REMOVED BY SYNTHETIC DEPARTMENT SUPERVISOR W/O COMPLICATIONS.
== END 2023-02-24 10:34 | disposition home or self-care (01) | DRG 371 ==
LOC: ER 13:44 → MEDS 16:47
PROVIDERS: Hospitalist; Physician Assistant; ADMIT Family Medicine
PROC: 3E1M39Z Irrigation of Peritoneal Cavity using Dialysate, Percutaneous Approach (ICD-10-PCS; principal; 2023-02-21)
DX: K65.2 Spontaneous bacterial peritonitis (principal); N18.6 End stage renal disease; I13.2 Hypertensive heart and chronic kidney disease with heart failure and with stage 5 chronic kidney disease, or end stage renal disease; Z94.1 Heart transplant status; B95.8 Unspecified staphylococcus as the cause of diseases classified elsewhere; E78.5 Hyperlipidemia, unspecified; Z86.73 Personal history of transient ischemic attack (TIA), and cerebral infarction without residual deficits; D63.1 Anemia in chronic kidney disease; E11.22 Type 2 diabetes mellitus with diabetic chronic kidney disease; I25.10 Atherosclerotic heart disease of native coronary artery without angina pectoris; I25.2 Old myocardial infarction; I50.9 Heart failure, unspecified; E03.9 Hypothyroidism, unspecified; Z95.1 Presence of aortocoronary bypass graft; Z95.5 Presence of coronary angioplasty implant and graft; G47.30 Sleep apnea, unspecified; E87.6 Hypokalemia; Z99.2 Dependence on renal dialysis; I95.9 Hypotension, unspecified; Z88.2 Allergy status to sulfonamides; Z88.5 Allergy status to narcotic agent; Z79.890 Hormone replacement therapy; Z79.899 Other long term (current) drug therapy; Z96.41 Presence of insulin pump (external) (internal); Z87.891 Personal history of nicotine dependence; Z90.49 Acquired absence of other specified parts of digestive tract; Z98.890 Other specified postprocedural states; Z90.89 Acquired absence of other organs; Z98.891 History of uterine scar from previous surgery; Z87.19 Personal history of other diseases of the digestive system
CPT/HCPCS: 36415; 74177; 80048; 80053; 80069; 80202; 82306; 82533; 82947; 83605; 83690; 85025; 87040; 87070; 87075; 87205; 89051; 93005; 93010; 94762; 96365-59; 99285-25; A9270; J0696; J1644; J1815; J2405; J3010; J3370; J7030; J7050; J7120; J7507; J7518; Q9967

== ENCOUNTER 2023-10-17 17:52 | Emergency (ER) | payer MEDICARE, OTHER ==
[~2023-10-17] VITALS: Ht 160 cm; Wt 68.0 kg
[~2023-10-17 17:52] MED LIST changes: +AMLODIPINE BESYL5 MG PO; +CATAPRES0.1 MG PO; +Cipro500 MG PO; +Norco 5-325 Ta1 EACH PO; +TRAZ50 PO
[2023-10-17] MEDS ORDERED: Ondansetron HCl 2 MG / ML 2ML Vial IV ONE (18:20)
[2023-10-17 18:24] LABS: BASOPHILS ABSOLUTE AUTO 0.04 K/mm3 (0.00-0.23); BASOPHILS PERCENT AUTO 1 % (0-2); EOSINOPHILS ABSOLUTE AUTO 0.19 K/mm3 (0.00-0.68); EOSINOPHILS PERCENT AUTO 2 % (0-6); Hematocrit 29.4 % (33.0-51.0); Hemoglobin 9.4 g/dL (11.5-16.0); IMMATURE GRAN ABSOLUTE AUTO 0.04 K/mm3 (0.00-0.10); IMMATURE GRAN PERCENT AUTO 1 % (0-1); LYMPHOCYTES ABSOLUTE AUTO 1.69 K/mm3 (0.84-5.20); LYMPHOCYTES PERCENT AUTO 21 % (21-46); MONOCYTES ABSOLUTE AUTO 0.73 K/mm3 (0.16-1.47); MONOCYTES PERCENT AUTO 9 % (4-13); Mean Corpuscular HGB 29.1 pg (26.0-34.0); Mean Corpuscular Volume 91 fL (80-100); Mean Platelet Volume 9.3 fL (9.1-12.4); NEUTROPHILS ABSOLUTE AUTO 5.21 K/mm3 (1.96-9.15); NEUTROPHILS PERCENT AUTO 66 % (41-73); Platelet Count 319 K/mm3 (150-400); RDW Coefficient Variation 12.6 % (11.7-14.2); RDW Standard Deviation 41.5 fL (35.1-46.3); Red Blood Cell Count 3.23 M/mm3 (3.80-5.20)
[2023-10-17 18:45] LABS: Albumin, Blood 2.4 g/dL (3.4-5.0); Albumin/Globulin Ratio 0.7 (0.8-1.8); Bilirubin, Total 0.4 mg/dL (0.1-1.0); Bun/Creatinine Ratio 5.2 (12.0-20.0); Calcium, Blood 8.6 mg/dL (8.5-10.1); Creatinine, Blood 7.44 mg/dL (0.40-1.00); Globulin, Blood 3.5 g/dL (2.2-4.0); Potassium, Blood 4.2 mmol/L (3.5-5.5); Total Protein, Blood 5.9 g/dL (6.4-8.2)
[2023-10-17] MEDS ORDERED: Acetaminophen 500 MG Tab PO ONE (22:40)
[2023-10-17] MEDS ORDERED: HYDROmorphone HCl/Pf 1MG SYR IV ONE (23:25)
[2023-10-18 01:00] VITALS: BP 126/72
== END 2023-10-18 01:11 | disposition home or self-care (01) ==
LOC: ER 17:52
PROVIDERS: Student in an Organized Health Care Education/Training Program
DX: R10.11 Right upper quadrant pain (principal); Z88.2 Allergy status to sulfonamides; Z88.8 Allergy status to other drugs, medicaments and biological substances; E11.22 Type 2 diabetes mellitus with diabetic chronic kidney disease; I13.0 Hypertensive heart and chronic kidney disease with heart failure and stage 1 through stage 4 chronic kidney disease, or unspecified chronic kidney disease; N18.9 Chronic kidney disease, unspecified; I25.2 Old myocardial infarction; I50.9 Heart failure, unspecified; E78.5 Hyperlipidemia, unspecified; Z79.4 Long term (current) use of insulin; Z96.41 Presence of insulin pump (external) (internal); Z79.02 Long term (current) use of antithrombotics/antiplatelets; Z79.899 Other long term (current) drug therapy; Z87.891 Personal history of nicotine dependence
CPT/HCPCS: 74176; 80053; 83605; 83690; 83735; 84145; 85025; 96374; 96375; 99284-25; A9270; J1170; J2405

== ENCOUNTER 2023-10-30 17:23 | Emergency (ER) | payer OTHER, MEDICARE ==
[~2023-10-30] VITALS: Ht 160 cm; Wt 70.3 kg
[2023-10-30] MEDS ORDERED: AMLODIPINE BESYL5 MG PO (17:42)
[2023-10-30] MEDS ORDERED: Ondansetron HCl 2 MG / ML 2ML Vial IV ONE (17:45)
[2023-10-30] MEDS ORDERED: Morphine Sulfate 4 MG/1 ML Injection IV ONE ×2 (17:45→19:55)
[2023-10-30] MEDS ORDERED: HYDROCODONE-AC1 EA10 PO (19:58)
[2023-10-30] MEDS ORDERED: CELE100 PO (19:58)
[2023-10-30 20:24] VITALS: BP 188/91
== END 2023-10-30 20:22 | disposition home or self-care (01) ==
LOC: ER 17:23
DX: S00.03XA Contusion of scalp, initial encounter (principal); S39.93XA Unspecified injury of pelvis, initial encounter; I25.2 Old myocardial infarction; E11.22 Type 2 diabetes mellitus with diabetic chronic kidney disease; I13.0 Hypertensive heart and chronic kidney disease with heart failure and stage 1 through stage 4 chronic kidney disease, or unspecified chronic kidney disease; N18.9 Chronic kidney disease, unspecified; I50.9 Heart failure, unspecified; E78.5 Hyperlipidemia, unspecified; W01.0XXA Fall on same level from slipping, tripping and stumbling without subsequent striking against object, initial encounter; Z88.2 Allergy status to sulfonamides; Z88.8 Allergy status to other drugs, medicaments and biological substances; Z79.890 Hormone replacement therapy; Z79.899 Other long term (current) drug therapy; Z79.4 Long term (current) use of insulin; Z86.73 Personal history of transient ischemic attack (TIA), and cerebral infarction without residual deficits; Z95.5 Presence of coronary angioplasty implant and graft; Z95.810 Presence of automatic (implantable) cardiac defibrillator; Z87.891 Personal history of nicotine dependence
CPT/HCPCS: 70450; 73502; 96374; 96375; 96376; 99284-25; J2270; J2405

== ENCOUNTER 2024-02-06 19:36 | Inpatient (IN) | payer MEDICARE, OTHER ==
[~2024-02-06] VITALS: Ht 160 cm; Wt 68.5 kg
[~2024-02-06 19:36] MED LIST changes: +CELE100 PO; +HYDROCODONE-AC1 EA10 PO
[2024-02-06 20:23] LABS: BASOPHILS ABSOLUTE AUTO 0.02 K/mm3 (0.00-0.23); BASOPHILS PERCENT AUTO 0 % (0-2); EOSINOPHILS PERCENT AUTO 0 % (0-6); Hematocrit 29.3 % (33.0-51.0); Hemoglobin 9.2 g/dL (11.5-16.0); IMMATURE GRAN ABSOLUTE AUTO 0.05 K/mm3 (0.00-0.10); IMMATURE GRAN PERCENT AUTO 0 % (0-1); LYMPHOCYTES ABSOLUTE AUTO 0.95 K/mm3 (0.84-5.20); LYMPHOCYTES PERCENT AUTO 8 % (21-46); MONOCYTES PERCENT AUTO 5 % (4-13); Mean Corpuscular HGB 28.8 pg (26.0-34.0); Mean Corpuscular HGB Conc 31.4 g/dL (31.5-36.5); Mean Corpuscular Volume 92 fL (80-100); Mean Platelet Volume 9.2 fL (9.1-12.4); NEUTROPHILS ABSOLUTE AUTO 10.53 K/mm3 (1.96-9.15); NEUTROPHILS PERCENT AUTO 87 % (41-73); Platelet Count 516 K/mm3 (150-400); RDW Coefficient Variation 12.5 % (11.7-14.2); RDW Standard Deviation 41.5 fL (35.1-46.3); White Blood Cell Count 12.15 K/mm3 (4.00-11.30)
[2024-02-06 20:38] LABS: Albumin, Blood 1.8 g/dL (3.4-5.0); Albumin/Globulin Ratio 0.4 (0.8-1.8); Bilirubin, Total 0.4 mg/dL (0.1-1.0); Bun/Creatinine Ratio 3.7 (12.0-20.0); Calcium, Blood 7.9 mg/dL (8.5-10.1); Creatinine, Blood 5.37 mg/dL (0.40-1.00); Globulin, Blood 4.5 g/dL (2.2-4.0); Potassium, Blood 5.2 mmol/L (3.5-5.5); Total Protein, Blood 6.3 g/dL (6.4-8.2)
[2024-02-06] MEDS ORDERED: NS 1,000 ML IV SCH (20:50)
[2024-02-06] MEDS ORDERED: Piperacillin/Tazobactam Sod 4.5 GM in NS 100 ML IV ONE (20:50)
[2024-02-06] MEDS ORDERED: Acetaminophen 325 MG TABLET PO ONE (20:50)
[2024-02-06] MEDS ORDERED: FentaNYL Citrate 50 MCG/ML 2 ML Injection IV ONE (20:50)
[2024-02-06] MEDS ORDERED: Vancomycin HCL 1,500 MG in NS 250 ML IV ONE (20:50)
[2024-02-06 20:53] LABS: Magnesium, Blood 1.8 mg/dL (1.6-2.4)
[2024-02-06 21:59] LABS: Influenza A, PCR NEGATIVE (NEGATIVE); Influenza B, PCR NEGATIVE (NEGATIVE); Resp Syncytial Virus, PCR NEGATIVE (NEGATIVE); SARS-Cov-2 (COVID-19) PCR, MMC NEGATIVE (NEGATIVE)
[2024-02-06] MEDS ORDERED: Ondansetron HCl 2 MG / ML 2ML Vial IV PRN (22:10)
[2024-02-06] MEDS ORDERED: Acetaminophen 650 MG Supp PR PRN (22:15)
[2024-02-06] MEDS ORDERED: Acetaminophen 325 MG TABLET PO PRN (22:15)
[2024-02-06] MEDS ORDERED: TraZODone HCl 50 MG Tab PO PRN (22:20)
[2024-02-06] MEDS ORDERED: Lactated Ringer's 1,000 ML IV SCH (23:00)
[2024-02-06 23:12] LABS: Automated BF WBC Count 7.432 K/mm3 (0-999)
[2024-02-06] MEDS ORDERED: OMEP20ER PO (23:27)
[2024-02-06] MEDS ORDERED: FURO80 PO (23:28)
[2024-02-06 23:29] LABS: Glucose, Body Fluid 278 mg/dL; Protein, Body Fluid 0.8 g/dL
[2024-02-06] MEDS ORDERED: METO50ER PO (23:31)
[2024-02-07] VITALS (15 sets, daily range): BP systolic 83–159; BP diastolic 53–92
[2024-02-07] MEDS ORDERED: Insulin Regular 100 UNIT/ML 10ML Vial SC SCH
[2024-02-07 00:07] LABS: RBC Count, Body Fluid 33 /mm3 (0-0)
[2024-02-07 00:09] LABS: Appearance, Body Fluid Hazy (Clear); Body Fluid WBC Count 7432 /mm3 (0-999); Color, Body Fluid L Yellow (None-Yellow)
[2024-02-07 00:13] LABS: Total Cell Count, Body Fluid 100
--- NOTE | 2024-02-07 01:06 | NUR ---
DIALYSIS NURSE CALLED TO ER RM 18 FOR PT WITH PD PORT NEEDING CULTURES DRAWN FROM CATHETER. TOOK SAMPLE FROM CATHETER USING ASEPTIC PROTOCOL AND SENT TO LAB PENDING RESULTS.
[2024-02-07 05:44] LABS: Albumin, Blood 1.1 g/dL (3.4-5.0); Anion Gap 11 mmol/L (3-11); Blood Urea Nitrogen 20 mg/dL (8-24); CO2, Blood 26 mmol/L (21-32); Calcium, Blood 6.9 mg/dL (8.5-10.1); Chloride, Blood 104 mmol/L (98-108); Creatinine, Blood 5.06 mg/dL (0.40-1.00); Glomerular Filtration Rate 9 (60-); Glucose, Blood 133 mg/dL (70-99); Phosphorus, Blood 2.1 mg/dL (2.5-4.9); Potassium, Blood 4.8 mmol/L (3.5-5.5); Sodium, Blood 136 mmol/L (136-145)
[2024-02-07] MEDS ORDERED: Levothyroxine Sodium 0.025 MG Tab PO SCH (06:00)
[2024-02-07 06:24] LABS: BASOPHILS ABSOLUTE AUTO 0.03 K/mm3 (0.00-0.23); BASOPHILS PERCENT AUTO 0 % (0-2); EOSINOPHILS ABSOLUTE AUTO 0.09 K/mm3 (0.00-0.68); EOSINOPHILS PERCENT AUTO 1 % (0-6); Hematocrit 25.2 % (33.0-51.0); IMMATURE GRAN ABSOLUTE AUTO 0.08 K/mm3 (0.00-0.10); IMMATURE GRAN PERCENT AUTO 1 % (0-1); LYMPHOCYTES ABSOLUTE AUTO 1.68 K/mm3 (0.84-5.20); LYMPHOCYTES PERCENT AUTO 11 % (21-46); MONOCYTES ABSOLUTE AUTO 1.27 K/mm3 (0.16-1.47); MONOCYTES PERCENT AUTO 8 % (4-13); Mean Corpuscular HGB Conc 31.7 g/dL (31.5-36.5); Mean Corpuscular Volume 91 fL (80-100); NEUTROPHILS ABSOLUTE AUTO 12.07 K/mm3 (1.96-9.15); NEUTROPHILS PERCENT AUTO 79 % (41-73); RDW Coefficient Variation 12.6 % (11.7-14.2); RDW Standard Deviation 41.4 fL (35.1-46.3); Red Blood Cell Count 2.76 M/mm3 (3.80-5.20); White Blood Cell Count 15.22 K/mm3 (4.00-11.30)
--- NOTE | 2024-02-07 06:25 | NUR ---
Shift Summary Pt admitted from ED for bacterial peritonitis. Pt has a perineal dialysis catheter which may have caused an infection. She reportedly had n/v, weakness and increasing confusion at home before coming to the ED. On this unit she recieved LR @ 75, plan for ABX today. She is NPO with Q6 blood sugar, she was given 1 unit of regular insulin at 0000. Nephrology is consulted and there is a request to consult Dr. Carrero who does not have an answering service. She is 1 assist to the BSC. Continent voids, continent/incontinent loose watery BM this AM. She is AOx2-4, forgetful at times especially upon waking. She was not sure where she was or why she was here when she first arrived to this unit. She is easily re-oriented.
[2024-02-07 06:46] LABS: Platelet Count 474 K/mm3 (150-400)
[2024-02-07] MEDS ORDERED: Piperacillin/Tazobactam Sod 2.25 GM in NS 50 ML IV SCH (08:00)
[2024-02-07] MEDS ORDERED: Mycophenolate Sodium 180 MG Tablet DR PO SCH (09:00)
[2024-02-07] MEDS ORDERED: LamoTRIgine 100 MG Tab PO SCH (09:00)
[2024-02-07] MEDS ORDERED: Vitamin B Cmplx/Vit C/Folic Ac 1 Tab PO SCH (09:00)
[2024-02-07] MEDS ORDERED: Heparin Sodium,Porcine 5,000 UNIT/0.5 ML SDV SC SCH (09:00)
[2024-02-07] MEDS ORDERED: Atorvastatin 40 MG Tab PO SCH (09:00)
[2024-02-07] MEDS ORDERED: Ezetimibe 10 MG Tab PO SCH (09:00)
[2024-02-07] MEDS ORDERED: FLUoxetine HCL 20 MG CAP PO SCH (09:00)
[2024-02-07] MEDS ORDERED: Cholecalciferol 1000 Unit Tablet (=25MCG) PO SCH (09:00)
[2024-02-07] MEDS ORDERED: Tacrolimus 1 MG Cap PO SCH ×2 (09:00→18:00)
[2024-02-07] MEDS ORDERED: Lactobacil 2-S.Thermo-Bifido 1 1 Cap PO SCH (09:00)
[2024-02-07] MEDS ORDERED: Metoprolol Tartrate 50 MG Tab PO SCH (09:00)
[2024-02-07 10:04] LABS: Vancomycin, Random 33.5 ug/mL
[2024-02-07] MEDS ORDERED: Anticoagulant Sod Citrate Soln 3 ML SYR INJ PRN (11:30)
--- NOTE | 2024-02-07 11:46 | NUR ---
PATIENT PASSED ST EVAL, IN DAILYSIS NOW, PATIENT OK RN TO TALK WITH JAMIL, PATIENT STAND BY ONE PERSON TO BSC, CONTINENT, URGENCY INCONTINENCE, ALERT AND OREINTED TO ALL, PATIENT TO COME BACK TO ROOM FROM DIALYSIS
[2024-02-07] MEDS ORDERED: Ondansetron HCl 2 MG / ML 2ML Vial IV PRN (12:55)
--- NOTE | 2024-02-07 18:28 | NUR ---
NO ACUTE CHANGES, MENTATION IMPROVEMENT, STAND BY ASSIST, INCREASING DIET, CLEARLY MAKING NEEDS KNOWN, JAMIL VISITED TODAY. HEMODIALYSIS TODAY ONLY TOOK 200 MLS OFF. EASILY POSITIONS SELF IN BED. WAITING FOR STOOL SAMPLE, CALL LIGHT WITH IN REACH, WILL RELAY TO PM RN
[2024-02-07 22:11] LABS: Adenovirus F 40/41 Not Detected (NOT DETECT); Astrovirus Not Detected (NOT DETECT); Campylobacter Sp Not Detected (NOT DETECT); Cryptosporidium Not Detected (NOT DETECT); Cyclospora Cayetanensis Not Detected (NOT DETECT); E. Coli O157 Not Detected (NOT DETECT); Entamoeba Histolytica Not Detected (NOT DETECT); Enteroaggregative E. coli-EAEC Not Detected (NOT DETECT); Enteropathogenic E. coli-EPEC Not Detected (NOT DETECT); Enterotoxigenic E. coli-ETEC Not Detected (NOT DETECT); Giardia Lamblia Not Detected (NOT DETECT); Norovirus GI/GII Not Detected (NOT DETECT); Plesiomonas Shigelloides Not Detected (NOT DETECT); Rotavirus A Not Detected (NOT DETECT); Salmonella Sp Not Detected (NOT DETECT); Sapovirus Not Detected (NOT DETECT); Shiga Toxin-prod E. coli-STEC Not Detected (NOT DETECT); Shigella/Enteroin E. coli-EIEC Not Detected (NOT DETECT); Vibrio Cholerae Not Detected (NOT DETECT); Vibrio Sp Not Detected (NOT DETECT); Yersinia Enterocolitica Not Detected (NOT DETECT)
[2024-02-07] MEDS ORDERED: Vancomycin HCl 125 MG Cap PO SCH (23:00)
[2024-02-08] VITALS (10 sets, daily range): BP systolic 125–153; BP diastolic 69–80
[2024-02-08 04:55] LABS: Hematocrit 22.9 % (33.0-51.0); Hemoglobin 6.8 g/dL (11.5-16.0); Mean Corpuscular HGB Conc 29.7 g/dL (31.5-36.5); Mean Corpuscular Volume 94 fL (80-100); Mean Platelet Volume 9.6 fL (9.1-12.4); Platelet Count 430 K/mm3 (150-400); RDW Coefficient Variation 12.7 % (11.7-14.2); RDW Standard Deviation 43.7 fL (35.1-46.3); Red Blood Cell Count 2.43 M/mm3 (3.80-5.20); White Blood Cell Count 9.86 K/mm3 (4.00-11.30)
[2024-02-08 05:20] LABS: Anion Gap 7 mmol/L (3-11); Blood Urea Nitrogen 16 mg/dL (8-24); Bun/Creatinine Ratio 3.5 (12.0-20.0); CO2, Blood 32 mmol/L (21-32); Calcium, Blood 7.3 mg/dL (8.5-10.1); Chloride, Blood 103 mmol/L (98-108); Creatinine, Blood 4.53 mg/dL (0.40-1.00); Glomerular Filtration Rate 10 (60-); Glucose, Blood 104 mg/dL (70-99); Iron Serum 24 ug/dL (50-170); Phosphorus, Blood 2.2 mg/dL (2.5-4.9); Potassium, Blood 4.6 mmol/L (3.5-5.5); Sodium, Blood 137 mmol/L (136-145); Total Iron Binding Capacity 126 ug/dL (250-450); Vancomycin, Random 27.8 ug/mL
[2024-02-08] MEDS ORDERED: NS 500 ML IV SCH (06:00)
--- NOTE | 2024-02-08 06:37 | NUR ---
Shift Summary PT GI panel came back positive for CDIFF, contact precautions in place before the start of shift and maintaned throughout. I called the hospitalist who ordered scheduled PO Vancomyacin. Pt continues to have recurrent watery loose stools about every 4-[address] Schmidt came by to see pt and ordered Retacrit and spoke about removing her PD soon. This AM pt's HgB is 6.8, I called the hospitalst who ordered 1 unit PRBCs, the order is placed and the type/match screen was drawn. No events on tele. Pt is more mentally clear this shift and was AOx4. She is 1 assist to BSC. Calls appropriatly.
--- NOTE | 2024-02-08 08:35 | NUR ---
pt laying in bed awake a/ox4, pleasant and coopertive with care, follows commands well, denies pain at this time, lungs are clear t/o, resp even and unlabored, no cough noted, hrr, no edema noted, ppp+2, cap refill <3 sec, vs stable, afebrile, piv to lac site is clear and patent, btx4, abd flat soft nontender, voids very little, has P.D. cath to abd, site is clear, perma cath to lcw site is clear, richard perez, call light in reach.
[2024-02-08] MEDS ORDERED: Sodium Phosphate Mono/Dibasic 250 MG Tab PO SCH (09:00)
[2024-02-08] MEDS ORDERED: Epoetin Alfa-EPBX 10,000 Unit/ML 1ML Vial SC SCH (09:00)
[2024-02-08] MEDS ORDERED: Insulin Regular 100 UNIT/ML 10ML Vial SC SCH (16:30)
--- NOTE | 2024-02-08 18:34 | NUR ---
TOOK OVER CARE AT 1540. NO DISTRESS NOTED AOX4 AND COOPERTIVE OF CARE. PT WAS ABLE TO MAKE NEEDS KNOWN. CALL LIGHT WITHIN REACH.
[2024-02-09] VITALS (8 sets, daily range): BP systolic 165–188; BP diastolic 81–106
--- NOTE | 2024-02-09 05:00 | NUR ---
SHIFT SUMMARY NO ACUTE CHANGES TO REPORT OVERNIGHT, PT HAS RESTED T/O THE NIGHT. PT DENIES PAIN. BOWEL MOVEMENTS HAVE SLOWED DOWN. PLAN OF CARE REMAINS UNCHANGED. BED IN LOWEST POSITION, CALL LIGHT WITHIN REACH.
[2024-02-09 05:15] LABS: Hematocrit 27.5 % (33.0-51.0); Hemoglobin 8.7 g/dL (11.5-16.0); Mean Corpuscular HGB 28.8 pg (26.0-34.0); Mean Corpuscular HGB Conc 31.6 g/dL (31.5-36.5); Mean Corpuscular Volume 91 fL (80-100); Mean Platelet Volume 10.1 fL (9.1-12.4); Platelet Count 291 K/mm3 (150-400); RDW Coefficient Variation 13.3 % (11.7-14.2); RDW Standard Deviation 43.8 fL (35.1-46.3); Red Blood Cell Count 3.02 M/mm3 (3.80-5.20); White Blood Cell Count 7.34 K/mm3 (4.00-11.30)
[2024-02-09 05:42] LABS: Albumin, Blood 1.2 g/dL (3.4-5.0); Anion Gap 9 mmol/L (3-11); Blood Urea Nitrogen 23 mg/dL (8-24); Bun/Creatinine Ratio 4.1 (12.0-20.0); CO2, Blood 29 mmol/L (21-32); Calcium, Blood 7.5 mg/dL (8.5-10.1); Chloride, Blood 104 mmol/L (98-108); Glomerular Filtration Rate 8 (60-); Glucose, Blood 86 mg/dL (70-99); Phosphorus, Blood 3.1 mg/dL (2.5-4.9); Potassium, Blood 5.2 mmol/L (3.5-5.5); Sodium, Blood 137 mmol/L (136-145); Vancomycin, Random 25.7 ug/mL
--- NOTE | 2024-02-09 09:00 | NUR ---
pt laying in bed awake a/ox4, pleasant and cooperative with care, follows commands well, denies pain at this time, lungs are clear t/o, resp even and unlabored, no cough noted, hrr, no edema noted, ppp+2, cap refill <3 sec, vs stable, afebrile, piv to right fa, site is clear and patent, btx4, abd flat soft nontender, voids small amounts, skin c/w/d, maew, richard, call light in reach.
--- NOTE | 2024-02-09 18:04 | NUR ---
pt continues to have loose stools, states she is feeling some better than yesterday. states she is very cold, several warm blankets given, no further changes this shift. call light in reach.
[2024-02-10] VITALS (15 sets, daily range): BP systolic 136–178; BP diastolic 88–128
[2024-02-10 05:21] LABS: Hematocrit 28.9 % (33.0-51.0); Hemoglobin 9.3 g/dL (11.5-16.0); Mean Corpuscular HGB Conc 32.2 g/dL (31.5-36.5); Mean Corpuscular Volume 90 fL (80-100); Platelet Count 453 K/mm3 (150-400); RDW Coefficient Variation 12.8 % (11.7-14.2); RDW Standard Deviation 41.7 fL (35.1-46.3); Red Blood Cell Count 3.21 M/mm3 (3.80-5.20)
[2024-02-10 05:54] LABS: Albumin, Blood 1.3 g/dL (3.4-5.0); Anion Gap 13 mmol/L (3-11); Blood Urea Nitrogen 27 mg/dL (8-24); Bun/Creatinine Ratio 4.1 (12.0-20.0); CO2, Blood 26 mmol/L (21-32); Calcium, Blood 7.6 mg/dL (8.5-10.1); Chloride, Blood 104 mmol/L (98-108); Creatinine, Blood 6.66 mg/dL (0.40-1.00); Glomerular Filtration Rate 7 (60-); Glucose, Blood 99 mg/dL (70-99); Phosphorus, Blood 3.3 mg/dL (2.5-4.9); Potassium, Blood 4.7 mmol/L (3.5-5.5); Sodium, Blood 138 mmol/L (136-145); Vancomycin, Random 27.1 ug/mL
--- NOTE | 2024-02-10 06:08 | NUR ---
END OF SHIFT SUMMARY PT A&OX4, DROWSY AND WITHDRAWN AT TIMES. 3 EPISODES OF LOOSE STOOL THROUGH NIGHT WITH 1 BEING INCONTINENT. UP TO BSC WITH 1XA/FWW, WEAK BUT STEADY GAIT. HD PERMACATH TO R CHEST, PD CATH TO ABD. POSSIBLE HD TX TODAY. PT DENIED PAIN. NO ACUTE EVENTS OVERNIGHT.
[2024-02-10] MEDS ORDERED: Anticoagulant Sod Citrate Soln 3 ML SYR INJ PRN (08:10)
[2024-02-10] MEDS ORDERED: AmLODIPine Besylate 5 MG Tab PO SCH (09:00)
[2024-02-10] MEDS ORDERED: Fidaxomicin 200 MG Tab PO SCH (11:30)
--- NOTE | 2024-02-10 17:55 | NUR ---
SHIFT SUMMARY PT CONT LEVEL OF CARE WITH NO ACUTE CHANGES NOTED. PT DID RECEIVE DIAYLSIS THIS AM NO COMPLICATION NOTED OR REPORTED. PT HAD 1000ML TAKEN OFF. TELE WAS DC THIS SHIFT. PT CONT TO REMAIN IN ISO D/T CDIFF. PT NOTED TO HAVE 2 LOOSE STOOLS THIS SHIFT. PT SET UP IN CHAIR THIS SHIFT FOR AROUND 2HRS. PT HAS HAD FAMILY IN ROOM VISITING OFF AND ALL THIS AFTERNOON. SBA WITH GAITBELT AND WALKER TO BEDSIDE COMMODE.
[2024-02-10] MEDS ORDERED: TraMADol HCl 50 MG Tab PO PRN (22:05)
[2024-02-10] MEDS ORDERED: TraZODone HCl 50 MG Tab PO SCH (23:05)
--- NOTE | 2024-02-10 23:45 | NUR ---
ASSUMED CARE OF PT AT 2340 AND THIS RN AGREES TO NOCTE SHIFT ASSESSEMENT FINDINGS.
[2024-02-11] VITALS (12 sets, daily range): BP systolic 101–176; BP diastolic 68–103
--- NOTE | 2024-02-11 04:12 | NUR ---
SUMMARY: PT A/OX4, CALLS APPROPRIATELY TO SPECIFY NEEDS AND IS PLEASANT AND COOPERATIVE W/CARE. SHE'S UP W/SBA, FWW AND GB AND HAD X3 BM'S TONIGHT. PT REMAINS IN ISO FOR CDIFF. SHE RECEIVED TYLENOL AND TRAMADOL FOR TOLERABLE RELIEF OF L.HIP PAIN. PT ALSO C/O DIFFICULTY SLEEPING W/TRAZADONE RX'D AND RECIEVED FOR GOOD EFFECT. PD CATH PRESENT TO ABDO AND PERMCATH TO R.CW REMAINS SECURE AND INTACT. NO ACUTE CHANGES, VSS/AFEBRILE. WCTM AND REPORT TO DAY RN.
[2024-02-11 05:22] LABS: Albumin, Blood 1.2 g/dL (3.4-5.0); Anion Gap 11 mmol/L (3-11); Blood Urea Nitrogen 19 mg/dL (8-24); Bun/Creatinine Ratio 3.3 (12.0-20.0); CO2, Blood 25 mmol/L (21-32); Calcium, Blood 7.8 mg/dL (8.5-10.1); Chloride, Blood 104 mmol/L (98-108); Creatinine, Blood 5.75 mg/dL (0.40-1.00); Glomerular Filtration Rate 8 (60-); Glucose, Blood 131 mg/dL (70-99); Phosphorus, Blood 2.7 mg/dL (2.5-4.9); Potassium, Blood 4.3 mmol/L (3.5-5.5); Sodium, Blood 136 mmol/L (136-145)
[2024-02-11] MEDS ORDERED: Metoprolol Tartrate 50 MG Tab PO SCH (09:00)
[2024-02-11] MEDS ORDERED: AmLODIPine Besylate 5 MG Tab PO SCH (09:00)
[2024-02-11] MEDS ORDERED: NS 500 ML IV SCH (10:55)
[2024-02-11] MEDS ORDERED: NS 1,000 ML IV SCH (10:55)
--- NOTE | 2024-02-11 14:05 | NUR ---
PT PREPPED FOR SURGERY IN ROOM ON MEDICAL FLOOR. PT IN GOWN, YELLOW SOCKS, SURGICAL HAT AND SCDS APPLIED. SEE SCALER NOTES FOR V/S AND BLOOD SUGAR. Pre-Op teaching done. Pt verbalizes understanding. PT REPORTS HAVING DRANK CHICKEN BROTH AT 1000 THIS MORNING. OR TEAM NOTIFIED.
--- NOTE | 2024-02-11 14:05 | NUR ---
PT HAS 20G IV TO RIGHT WRIST THAT FLUSHES WELL.
[2024-02-11] MEDS ORDERED: Bupivacaine 0.5% HCl 5 MG/ML 30MLVIAL ONE (14:19)
[2024-02-11] MEDS ORDERED: propofoL 20 ML IV ONE ×2 (14:48→15:22)
[2024-02-11] MEDS ORDERED: Lidocaine 1%-Epineph 1:100000 20 ML MDV ONE (14:53)
[2024-02-11] MEDS ORDERED: FentaNYL Citrate 50 MCG/ML 2 ML Injection ONE (15:07)
--- NOTE | 2024-02-11 15:22 | NUR ---
02/11/24 1522 Heena Manning 10MLS OF LIDOCAINE 1% WITH EPI MIXED WITH 10MLS OF BUPIVACAINE 0.5% AND POURED ONTO STERILE FIELD.
--- NOTE | 2024-02-11 17:22 | NUR ---
SHIFT SUMMARY PT CONT LEVEL OF CARE CARE. PT WAS TAKEN DOWN TO SURGERY TODAY AROUND 1400 TO HAVE HAVE PD CATH REMOVED. PT ARRIVED BACK UP ON MEDICAL FLOOR AROUND 1610 PD CATH WAS REMOVED PT NOTED TO HAVE 2 INSICION SITES TO ABD. PT PLACED BACK ON A CONSTANT CARB DIET. PT DENIES PAIN AT THIS TIME. PT CONT TO HAVE LOOSE STOOLS THIS SHIFT 3 NOTED. PT CONT TO TRANSFER ASSIST X1 TO BEDSIDE COMMODE.
[2024-02-11] MEDS ORDERED: TraZODone HCl 50 MG Tab PO SCH (21:00)
[2024-02-12] VITALS (14 sets, daily range): BP systolic 109–169; BP diastolic 46–97
--- NOTE | 2024-02-12 05:05 | NUR ---
SUMMARY: PT A/OX4, CALLS APPROPRIATELY TO SPECIFY NEEDS AND IS PLEASANT AND COOPERATIVE W/CARE. SHE'S UP AD [place] TO BSC AND HAD X2 LOOSE STOOLS TONIGHT, C.DIFF ISOLATION IN PLACE. PT HAS X2 INCISION SITES TO ABDO THAT ARE C/D/I S/P REMOVAL OF PD CATH ON DAY SHIFT, POST-OP VITALS STABLE. PERMCATH IS PRESENT INTACT TO R.CW. SHE DENIES PAIN AND ALL OTHER COMPLAINTS BUT REQUESTED TRAZADONE FOR SLEEP. NO ACUTE CHANGES. WCTM AND REPORT TO DAY RN.
[2024-02-12 07:20] LABS: Albumin, Blood 1.4 g/dL (3.4-5.0); Anion Gap 12 mmol/L (3-11); Blood Urea Nitrogen 23 mg/dL (8-24); Bun/Creatinine Ratio 3.5 (12.0-20.0); CO2, Blood 24 mmol/L (21-32); Calcium, Blood 8.2 mg/dL (8.5-10.1); Chloride, Blood 108 mmol/L (98-108); Creatinine, Blood 6.63 mg/dL (0.40-1.00); Glomerular Filtration Rate 7 (60-); Glucose, Blood 121 mg/dL (70-99); Phosphorus, Blood 2.8 mg/dL (2.5-4.9); Sodium, Blood 139 mmol/L (136-145); Vancomycin, Random 20.6 ug/mL
[2024-02-12] MEDS ORDERED: Anticoagulant Sod Citrate Soln 3 ML SYR INJ PRN (07:40)
--- NOTE | 2024-02-12 13:16 | NUR ---
have been kicked out of system to chart for a while, writing notes on paper... 1130 VITALS performed as q4 post op still. assist upto commode, LOOSE STOOL cont'd, pericare assist, pullups replaced, repos to bed, present, 5x warm blankets, lunch tray provided after ac-hs taken, Nurse aware,
[2024-02-12] MEDS ORDERED: Vancomycin HCL 750 MG in NS 250 ML IV ONE (14:00)
[2024-02-12] MEDS ORDERED: Miconazole Nitrate 28 GM CREAM..G. TOP SCH (15:30)
[2024-02-12] MEDS ORDERED: Clotrimazole 1% Cream 15 GM Tube TOP SCH (16:00)
--- NOTE | 2024-02-12 18:31 | NUR ---
SHIFT SUMMARY PT CONT LEVEL OF CARE WITH NO ACUTE CHANGES NOTED. PT STOOL ARE NOTED TO HAVE FORMED UP A LITTLE FROM THE DAY BEFORE AND BE LESS FREQUENT. PT CONT TO BE A SBA TO BEDSIDE COMMODE. PT INSISION SITES TO LUQ NOTED TO BE INTACT. PT HAS VOICED C/O PAIN TO LUQ AND RECEIVED PRN PAIN MEDICATION THIS SHIFT.
[2024-02-13] VITALS (18 sets, daily range): BP systolic 41–165; BP diastolic 53–89
--- NOTE | 2024-02-13 04:43 | NUR ---
SHIFT SUMMARY. PATIENT IS A&OX4. PATIENT IS PLEASANT AND COOPERATIVE WITH CARE. PATIENT DID NOT HAVE ANY BOWEL MOVEMENTS THIS SHIFT. PATIENT SLEPT WELL T/O NIGHT WITH RESPIRATATIONS EQUAL AND UNLABORED. PATIENT IS ABLE TO MAKE HER NEEDS KNOWN. NO ACUTE EVENTS NOTED THIS SHIFT. BED IS LOCKED IN THE LOWEST POSITION WITH CALL LIGHT IN REACH. CARE IS ONGOING.
[2024-02-13 04:53] LABS: Albumin, Blood 1.4 g/dL (3.4-5.0); Anion Gap 12 mmol/L (3-11); Blood Urea Nitrogen 17 mg/dL (8-24); CO2, Blood 25 mmol/L (21-32); Calcium, Blood 8.1 mg/dL (8.5-10.1); Chloride, Blood 107 mmol/L (98-108); Creatinine, Blood 5.66 mg/dL (0.40-1.00); Glomerular Filtration Rate 8 (60-); Glucose, Blood 128 mg/dL (70-99); Potassium, Blood 4.8 mmol/L (3.5-5.5); Sodium, Blood 139 mmol/L (136-145); Vancomycin, Random 27.2 ug/mL
[2024-02-13] MEDS ORDERED: Anticoagulant Sod Citrate Soln 3 ML SYR INJ PRN (07:55)
[2024-02-13] MEDS ORDERED: Albumin (Human) 25gm/100ml 100 ML IV PRN (08:05)
[2024-02-13] MEDS ORDERED: AMLO10 PO (11:42)
[2024-02-13] MEDS ORDERED: ALEVAZOL56.7 G1 TOP (11:43)
[2024-02-13] MEDS ORDERED: VISBIOME 112.51 EACH PO (11:43)
[2024-02-13] MEDS ORDERED: DIFICID200 MG PO (11:43)
[2024-02-13] MEDS ORDERED: BANATROL PLUS1 EAC1 PO (11:44)
[2024-02-13] MEDS ORDERED: LINE600 PO (11:44)
--- NOTE | 2024-02-13 14:31 | NUR ---
PT DISCHARGED THE PT VERBALIZED UNDERSTANDING OF THE DC INSTRUCTIONS. PTS PRESCRIPTIONS WERE FAXED TO [facility]. THE PT WAS REMINDED TO CALL HER PCP AND ABSTRACT CLERK TO SCHEDULE POST HOSPITAL REVIEW APPOINTMENTS. THE PT WAS TRANSFERED VIA WHELLCHAIR ACCOMPANIED BY THE TECHNICIAN TELECOMMUNICATION SYSTEMS.
== END 2024-02-13 14:22 | disposition home health service (06) | DRG 907 ==
LOC: ER 19:36 → MEDS 22:07
PROVIDERS: Hospitalist; Internal Medicine; Physician Assistant; Student in an Organized Health Care Education/Training Program; Surgery; ADMIT Student in an Organized Health Care Education/Training Program
PROC: 3E03329 Introduction of Other Anti-infective into Peripheral Vein, Percutaneous Approach (ICD-10-PCS; 2024-02-07)
PROC: 5A1D70Z Performance of Urinary Filtration, Intermittent, Less than 6 Hours Per Day (ICD-10-PCS; 2024-02-11)
PROC: 0WPG03Z Removal of Infusion Device from Peritoneal Cavity, Open Approach (ICD-10-PCS; principal; 2024-02-11 13:30)
PROC: 30233N1 Transfusion of Nonautologous Red Blood Cells into Peripheral Vein, Percutaneous Approach (ICD-10-PCS; 2024-02-13)
PROC: 30233J1 Transfusion of Nonautologous Serum Albumin into Peripheral Vein, Percutaneous Approach (ICD-10-PCS; 2024-02-13)
DX: T85.71XA Infection and inflammatory reaction due to peritoneal dialysis catheter, initial encounter (principal); A40.9 Streptococcal sepsis, unspecified; K65.2 Spontaneous bacterial peritonitis; N18.6 End stage renal disease; E43 Unspecified severe protein-calorie malnutrition; I12.0 Hypertensive chronic kidney disease with stage 5 chronic kidney disease or end stage renal disease; Z94.1 Heart transplant status; A04.72 Enterocolitis due to Clostridium difficile, not specified as recurrent; Y84.1 Kidney dialysis as the cause of abnormal reaction of the patient, or of later complication, without mention of misadventure at the time of the procedure; D63.1 Anemia in chronic kidney disease; K76.0 Fatty (change of) liver, not elsewhere classified; E11.22 Type 2 diabetes mellitus with diabetic chronic kidney disease; Z86.73 Personal history of transient ischemic attack (TIA), and cerebral infarction without residual deficits; J44.9 Chronic obstructive pulmonary disease, unspecified; Z98.890 Other specified postprocedural states; E89.0 Postprocedural hypothyroidism; Z90.49 Acquired absence of other specified parts of digestive tract; E88.09 Other disorders of plasma-protein metabolism, not elsewhere classified; E83.39 Other disorders of phosphorus metabolism; Z99.2 Dependence on renal dialysis; Z79.899 Other long term (current) drug therapy; Z79.02 Long term (current) use of antithrombotics/antiplatelets; Z79.890 Hormone replacement therapy; Z79.2 Long term (current) use of antibiotics; E78.5 Hyperlipidemia, unspecified; L65.9 Nonscarring hair loss, unspecified; I25.2 Old myocardial infarction; G47.33 Obstructive sleep apnea (adult) (pediatric); I25.10 Atherosclerotic heart disease of native coronary artery without angina pectoris; Z95.5 Presence of coronary angioplasty implant and graft; Z95.1 Presence of aortocoronary bypass graft; Z87.891 Personal history of nicotine dependence; Z88.2 Allergy status to sulfonamides; Z88.8 Allergy status to other drugs, medicaments and biological substances; Z79.4 Long term (current) use of insulin; Z79.891 Long term (current) use of opiate analgesic; Z68.27 Body mass index [BMI] 27.0-27.9, adult
CPT/HCPCS: 0241U; 36415; 36430; 71046; 74176; 80048; 80053; 80069; 80202; 82945; 82947; 83540; 83550; 83605; 83735; 84100; 84157; 85025; 85027; 86850; 86900; 86901; 86922; 87040; 87070; 87077; 87186; 87205; 87324; 87507; 89051; 92610; 93005; 93010; 96365; 96375; 97110; 97162; 97530-CQ; 99285-25; A9270; C1729; J1644; J1815; J2405; J2543; J2704; J3010; J3370; J7030; J7050; J7120; J7507; J7518; P9016; P9047; Q5106

== ENCOUNTER 2024-03-08 14:27 | Emergency (ER) | payer MEDICARE, OTHER ==
[~2024-03-08] VITALS: Ht 160 cm; Wt 63.0 kg
[~2024-03-08 14:27] MED LIST changes: +ALEVAZOL56.7 G1 TOP; +AMLO10 PO; +BANATROL PLUS1 EAC1 PO; +DIFICID200 MG PO; +LINE600 PO; +METO50ER PO; +OMEP20ER PO; +VISBIOME 112.51 EACH PO
[2024-03-08 14:31] VITALS: BP 163/93
== END 2024-03-08 15:34 | disposition home or self-care (01) ==
LOC: ER 14:27
DX: S00.03XA Contusion of scalp, initial encounter (principal); E11.22 Type 2 diabetes mellitus with diabetic chronic kidney disease; N18.9 Chronic kidney disease, unspecified; I13.0 Hypertensive heart and chronic kidney disease with heart failure and stage 1 through stage 4 chronic kidney disease, or unspecified chronic kidney disease; I50.9 Heart failure, unspecified; E78.5 Hyperlipidemia, unspecified; I25.2 Old myocardial infarction; W22.8XXA Striking against or struck by other objects, initial encounter; Z87.891 Personal history of nicotine dependence; Z79.899 Other long term (current) drug therapy; Z79.4 Long term (current) use of insulin; Z79.02 Long term (current) use of antithrombotics/antiplatelets; Z88.2 Allergy status to sulfonamides; Z88.8 Allergy status to other drugs, medicaments and biological substances
CPT/HCPCS: 70450; 99283-25

== ENCOUNTER 2024-03-14 13:41 | Emergency (ER) | payer MEDICARE, OTHER ==
[~2024-03-14] VITALS: Ht 160 cm; Wt 67.6 kg
[2024-03-14 15:30] VITALS: BP 187/99
== END 2024-03-14 17:39 | disposition home or self-care (01) ==
LOC: ER 13:41
DX: S01.01XA Laceration without foreign body of scalp, initial encounter (principal); N18.6 End stage renal disease; Z99.2 Dependence on renal dialysis; M25.552 Pain in left hip; W18.30XA Fall on same level, unspecified, initial encounter; Z88.8 Allergy status to other drugs, medicaments and biological substances; Z88.2 Allergy status to sulfonamides; Z79.52 Long term (current) use of systemic steroids; Z79.899 Other long term (current) drug therapy; Z79.4 Long term (current) use of insulin; E11.22 Type 2 diabetes mellitus with diabetic chronic kidney disease; I13.2 Hypertensive heart and chronic kidney disease with heart failure and with stage 5 chronic kidney disease, or end stage renal disease; I25.2 Old myocardial infarction; E78.5 Hyperlipidemia, unspecified; I50.9 Heart failure, unspecified; Z87.891 Personal history of nicotine dependence
CPT/HCPCS: 70450; 72170; 73552; 99284-25

== ENCOUNTER 2024-03-18 14:21 | Observation (INO) | payer MEDICARE, OTHER ==
[~2024-03-18] VITALS: Ht 160 cm; Wt 60.4 kg
[2024-03-18 14:38] VITALS: BP 176/90
[2024-03-18] MEDS ORDERED: Ranitidine HCl150 M1 PO (14:56)
[2024-03-18 15:16] LABS: BASOPHILS ABSOLUTE AUTO 0.06 K/mm3 (0.00-0.23); BASOPHILS PERCENT AUTO 1 % (0-2); EOSINOPHILS ABSOLUTE AUTO 0.11 K/mm3 (0.00-0.68); EOSINOPHILS PERCENT AUTO 2 % (0-6); Hematocrit 33.3 % (33.0-51.0); Hemoglobin 10.5 g/dL (11.5-16.0); IMMATURE GRAN ABSOLUTE AUTO 0.02 K/mm3 (0.00-0.10); IMMATURE GRAN PERCENT AUTO 0 % (0-1); LYMPHOCYTES ABSOLUTE AUTO 1.56 K/mm3 (0.84-5.20); LYMPHOCYTES PERCENT AUTO 22 % (21-46); MONOCYTES ABSOLUTE AUTO 0.91 K/mm3 (0.16-1.47); MONOCYTES PERCENT AUTO 13 % (4-13); Mean Corpuscular HGB 29.7 pg (26.0-34.0); Mean Corpuscular HGB Conc 31.5 g/dL (31.5-36.5); Mean Corpuscular Volume 94 fL (80-100); Mean Platelet Volume 9.4 fL (9.1-12.4); NEUTROPHILS ABSOLUTE AUTO 4.47 K/mm3 (1.96-9.15); NEUTROPHILS PERCENT AUTO 63 % (41-73); Platelet Count 253 K/mm3 (150-400); RDW Coefficient Variation 16.1 % (11.7-14.2); RDW Standard Deviation 56.6 fL (35.1-46.3); Red Blood Cell Count 3.54 M/mm3 (3.80-5.20); White Blood Cell Count 7.13 K/mm3 (4.00-11.30)
[2024-03-18] MEDS ORDERED: Ondansetron 4 MG SoluTab SL ONE (15:25)
[2024-03-18 15:43] LABS: Albumin, Blood 2.5 g/dL (3.4-5.0); Albumin/Globulin Ratio 0.6 (0.8-1.8); Bilirubin, Total 0.5 mg/dL (0.1-1.0); Bun/Creatinine Ratio 3.8 (12.0-20.0); Calcium, Blood 8.8 mg/dL (8.5-10.1); Creatinine, Blood 5.54 mg/dL (0.40-1.00); Globulin, Blood 4.2 g/dL (2.2-4.0); Potassium, Blood 3.8 mmol/L (3.5-5.5); Total Protein, Blood 6.7 g/dL (6.4-8.2)
[2024-03-18] MEDS ORDERED: Ondansetron HCl 2 MG / ML 2ML Vial IV PRN (15:55)
[2024-03-18] MEDS ORDERED: OxyCODONE HCL 5 MG TAB PO PRN (15:55)
[2024-03-18] MEDS ORDERED: FLU VACC TS2024-25(6MOS UP)/PF 45 MCG/0.5 ML SYRINGE IM SCH (15:55)
[2024-03-18] MEDS ORDERED: Acetaminophen 325 MG TABLET PO PRN (15:55)
[2024-03-18] MEDS ORDERED: CloNIDine 0.1 MG Tab PO PRN (16:00)
[2024-03-18] MEDS ORDERED: Insulin Pump Cartridge MISC SC SCH (16:00)
[2024-03-18] MEDS ORDERED: Insulin Human Lispro 100 Units/ML 3ML Syringe SC SCH ×2 (17:20→21:00)
[2024-03-18 18:06] VITALS: BP 179/95
--- NOTE | 2024-03-18 18:24 | NUR ---
SHIFT SUMMARY MS KAUFMAN WAS A DIRECT ADMISSION TO MEDICAL UNIT THIS AFTERNOON. HER DAUGHTER AND LATER HER ACCOMPANIED HER. SHE LIVES AT HOME WITH FAMILY AND HAS HAD 3 FALLS IN THE PAST WEEK, GENERALLY FEELING VERY WEAK IN HER LEGS. SHE C/O 20LB WEIGHT LOSS OVER THE COURSE OF HER ADMISSION WITH DIFF A MONTH AGO AND HAS NOT FELT LIKE SHE HAS HAD STRENGTH SINCE. ON ONE FALL SHE DESCRIBES HITTING HER TAILBONE AND C/O TAILBONE DISCOMFORT. THERE IS SOME PINKNESS TO THE AREA, NO SKIN BREAKDOWN. EGGCRATE MATTRESS PUT ON BED. SHE SAID SHE FELL AND HIT HER HEAD AND HAS AN ABRASION RIGHT BACK OF HEAD (PHOTO IN CHART). RIGHT CHEST HEMODIALYSIS CATHETER C,D,I. PLAN FOR HD TOMORROW PER DR WHITMORE. BLOOD PRESSURE ELEVATED ON ADMISSION, DR VALENTINO AWARE AND CLONIDINE PRN DOSE GIVEN. SHE C/O PELVIC FRACTURE IN AUGUST AND HAS DISCOMFORT WHEN REPOSITIONED. SACRUM/COCCYX RAY ORDERED AND PENDING. SHE HAS STOOL SPECIMEN ORDERED, ON ISOLATION PRECAUTIONS PENDING RESULTS. SHE DENIES HAVING LIQUID STOOL THAT SHE HAD WITH PRIOR ADMISSION, SAID HER STOOL IS BACK TO HER BASELINE DIARRHEA. SHE VERBALISED UNDERSTANDING NOT TO GET UP OUT OF BED WITHOUT STAFF ASSISTANCE. BED LOW, BED ALARM ON AND CALL LIGHT IN REACH.
[2024-03-18 20:15] VITALS: BP 150/88
[2024-03-18] MEDS ORDERED: Mycophenolate Sodium 180 MG Tablet DR PO SCH (21:00)
[2024-03-18] MEDS ORDERED: Tacrolimus 1 MG Cap PO SCH (21:00)
[2024-03-18] MEDS ORDERED: Clotrimazole 1% Cream 15 GM Tube TOP SCH (21:00)
[2024-03-18] MEDS ORDERED: Metoprolol Tartrate 50 MG Tab PO SCH (21:00)
[2024-03-18] MEDS ORDERED: TraZODone HCl 50 MG Tab PO SCH (21:00)
[2024-03-18] MEDS ORDERED: Lactobacil 2-S.Thermo-Bifido 1 1 Cap PO SCH (21:00)
[2024-03-19] VITALS (23 sets, daily range): BP systolic 95–201; BP diastolic 56–102
--- NOTE | 2024-03-19 04:45 | NUR ---
SHIFT SUMMARY PATIENT TAKEN VIA W/C TO XRAY. SLEPT MOST OF THE NIGHT. HAD ELEVATED BP 176/91 THAT REQUIRED PRN CLONIDINE.DID NOT REQUEST ANY PAIN MEDS.REMAINS IN CONTACT ISOLATION SINCE SHE DID NOT HAVE BM.
--- NOTE | 2024-03-19 05:30 | NUR ---
PATIENT C/O HEADACHE, GIVEN TYLENOL
[2024-03-19 05:47] LABS: BASOPHILS ABSOLUTE AUTO 0.04 K/mm3 (0.00-0.23); BASOPHILS PERCENT AUTO 1 % (0-2); EOSINOPHILS PERCENT AUTO 5 % (0-6); Hematocrit 30.4 % (33.0-51.0); Hemoglobin 9.5 g/dL (11.5-16.0); IMMATURE GRAN ABSOLUTE AUTO 0.02 K/mm3 (0.00-0.10); IMMATURE GRAN PERCENT AUTO 0 % (0-1); LYMPHOCYTES ABSOLUTE AUTO 1.66 K/mm3 (0.84-5.20); LYMPHOCYTES PERCENT AUTO 26 % (21-46); MONOCYTES ABSOLUTE AUTO 0.97 K/mm3 (0.16-1.47); MONOCYTES PERCENT AUTO 15 % (4-13); Mean Corpuscular HGB 29.3 pg (26.0-34.0); Mean Corpuscular HGB Conc 31.3 g/dL (31.5-36.5); Mean Corpuscular Volume 94 fL (80-100); Mean Platelet Volume 9.8 fL (9.1-12.4); NEUTROPHILS ABSOLUTE AUTO 3.47 K/mm3 (1.96-9.15); NEUTROPHILS PERCENT AUTO 54 % (41-73); Platelet Count 239 K/mm3 (150-400); RDW Coefficient Variation 15.9 % (11.7-14.2); RDW Standard Deviation 54.7 fL (35.1-46.3); Red Blood Cell Count 3.24 M/mm3 (3.80-5.20); White Blood Cell Count 6.46 K/mm3 (4.00-11.30)
[2024-03-19] MEDS ORDERED: Vitamin B Cmplx/Vit C/Folic Ac 1 Tab PO SCH (06:00)
[2024-03-19] MEDS ORDERED: Levothyroxine Sodium 0.025 MG Tab PO SCH (06:00)
[2024-03-19 06:04] LABS: Albumin, Blood 2.3 g/dL (3.4-5.0); Albumin/Globulin Ratio 0.6 (0.8-1.8); Bilirubin, Total 0.5 mg/dL (0.1-1.0); Bun/Creatinine Ratio 4.1 (12.0-20.0); Calcium, Blood 8.2 mg/dL (8.5-10.1); Creatinine, Blood 6.39 mg/dL (0.40-1.00); Globulin, Blood 3.7 g/dL (2.2-4.0); Magnesium, Blood 1.7 mg/dL (1.6-2.4); Phosphorus, Blood 3.5 mg/dL (2.5-4.9); Potassium, Blood 4.5 mmol/L (3.5-5.5)
[2024-03-19] MEDS ORDERED: Anticoagulant Sod Citrate Soln 3 ML SYR INJ PRN (07:40)
[2024-03-19] MEDS ORDERED: Clopidogrel Bisulfate 75 MG Tab PO SCH (09:00)
[2024-03-19] MEDS ORDERED: AmLODIPine Besylate 5 MG Tab PO SCH (09:00)
[2024-03-19] MEDS ORDERED: HydrALAZINE HCl 10 MG Tab PO SCH (09:00)
[2024-03-19] MEDS ORDERED: Atorvastatin 40 MG Tab PO SCH (09:00)
[2024-03-19] MEDS ORDERED: FLUoxetine HCL 20 MG CAP PO SCH (09:00)
[2024-03-19] MEDS ORDERED: Heparin Sodium,Porcine 5,000 UNIT/0.5 ML SDV SC SCH (09:00)
[2024-03-19] MEDS ORDERED: Cholecalciferol 1000 Unit Tablet (=25MCG) PO SCH (09:00)
[2024-03-19] MEDS ORDERED: LamoTRIgine 100 MG Tab PO SCH (09:00)
[2024-03-19] MEDS ORDERED: HydrALAZINE HCl 25 MG Tab PO SCH (09:00)
[2024-03-19] MEDS ORDERED: Tacrolimus 1 MG Cap PO SCH (09:00)
[2024-03-19] MEDS ORDERED: Ezetimibe 10 MG Tab PO SCH (09:00)
[2024-03-19] MEDS ORDERED: ALPRAZolam 0.5 MG Tab PO PRN (13:45)
[2024-03-19] MEDS ORDERED: Carvedilol 6.25 MG Tab PO SCH ×2 (17:00)
--- NOTE | 2024-03-19 18:20 | NUR ---
REPORT RECEIVED VERIFIED. A/O X3 NO C/O PAIN NO DISTRESS, 830 TO DIALYSIS. 1230 PT BROUGHT BACK FROM DIALYSIS AND TREATED FOR BACK PAIN AND HTN, EPISODE MADE PT VERY ANXIOUS AND I ENC PT TO WAIT FOR MEDICATION TO TAKE HOLD BEFORE I APPROACHED MD.1315 NOTIFIED THAT PAIN AND HTN WERE BETTER BUT THAT PT WANTED SOMETHING FOR ANXIETY. MD ORDERED XANAX AND MEDICATION WAS GIVEN, PT WAS ALLOWED TO REST. 1500 PT IN DEEO SLEEP AROUSABLE, BP WNL NO S/S OPF PAIN, AT BEDSIDE. PHYSICAL THERAPY WANTS TO WAIT AND WILL RETURN IN THE MORNING. 1700 PT AWAKE AND FEEDING SELF BUT IS VERY DISORIENTED, CONFUSED ABOUT SITUATION BUT NO DISTRESS AND VSS. WILL CONT TO MONITOR, PT FEEDING SELF DINNER
[2024-03-19] MEDS ORDERED: Epoetin Alfa-EPBX 10,000 Unit/ML 1ML Vial SC SCH (22:06)
[2024-03-20 03:35] VITALS: BP 147/81
--- NOTE | 2024-03-20 05:44 | NUR ---
PATTERN PUNCHER SUMMARY NO CHANGES OVERNIGHT. PT CONTINUES TO BE WEAK BILATERALLY. SHE UNDERSTANDS SHE IS EXPECTED TO GET UP FOR ALL MEALS AND TRY TO MOBILIZE ABLE. WE STILL NEEDS A STOOL SAMPLE PT HAS NOT HAD A BOWEL MOVEMENT SINCE ADMITTING TO HOSPITAL.
[2024-03-20 06:02] LABS: Albumin, Blood 2.2 g/dL (3.4-5.0); Anion Gap 13 mmol/L (3-11); Blood Urea Nitrogen 15 mg/dL (8-24); Bun/Creatinine Ratio 3.8 (12.0-20.0); CO2, Blood 30 mmol/L (21-32); Calcium, Blood 8.2 mg/dL (8.5-10.1); Chloride, Blood 99 mmol/L (98-108); Creatinine, Blood 3.91 mg/dL (0.40-1.00); Glomerular Filtration Rate 12 (60-); Glucose, Blood 128 mg/dL (70-99); Iron Serum 28 ug/dL (50-170); Percent Saturation 20.1 % (15.0-50.0); Phosphorus, Blood 3.3 mg/dL (2.5-4.9); Potassium, Blood 3.7 mmol/L (3.5-5.5); Prealbumin, Blood 16.8 mg/dL (20.0-40.0); Sodium, Blood 138 mmol/L (136-145); Total Iron Binding Capacity 139 ug/dL (250-450)
[2024-03-20] MEDS ORDERED: Dronabinol 2.5 MG Cap PO SCH (07:30)
[2024-03-20 07:40] VITALS: BP 150/81
[2024-03-20] MEDS ORDERED: AmLODIPine Besylate 5 MG Tab PO SCH (09:00)
[2024-03-20 14:21] VITALS: BP 138/74
[2024-03-20] MEDS ORDERED: METO100 PO (15:31)
[2024-03-20 15:48] VITALS: BP 143/77
[2024-03-20 17:13] VITALS: BP 155/90
--- NOTE | 2024-03-20 18:07 | NUR ---
SHIFT SUMMARY: PATIENT A/OX4, CALM, PLEASANT AND COOPERATIVE c CARE. PATIENT MEDICATED FOR PAIN TO HER NECK/TAILBONE PER EMAR c GOOD EFFECT. PATIENT HAD PT EVAL TODAY, RECOMMENDING SERVICES. PATIENT SAT UP IN THE CHAIR FOR ALL HER MEALS THIS SHIFT, TOLERATED WELL. PATIENT HAD BEDBATH AND LINEN CHANGED TODAY. PATIENT RECEIVED SCHEDULED MEDS PER EMAR. VITAL SIGNS REVIEWED. PATIENT SCHEDULED TO HAVE HER DIALYSIS TOMORROW AT [id number] AND POSSIBLE DISCHARGE HOME AFTER DIALYSIS. CALL LIGHT IN REACH.
[2024-03-20 20:02] VITALS: BP 149/77
[2024-03-20] MEDS ORDERED: Protein Supplement 30 ML UD PO SCH (21:00)
[2024-03-21] VITALS (16 sets, daily range): BP systolic 140–179; BP diastolic 73–95
[2024-03-21 06:06] LABS: Albumin, Blood 2.1 g/dL (3.4-5.0); Anion Gap 14 mmol/L (3-11); Blood Urea Nitrogen 31 mg/dL (8-24); Bun/Creatinine Ratio 5.6 (12.0-20.0); CO2, Blood 28 mmol/L (21-32); Calcium, Blood 8.2 mg/dL (8.5-10.1); Chloride, Blood 97 mmol/L (98-108); Creatinine, Blood 5.56 mg/dL (0.40-1.00); Glomerular Filtration Rate 8 (60-); Glucose, Blood 144 mg/dL (70-99); Phosphorus, Blood 3.5 mg/dL (2.5-4.9); Potassium, Blood 3.8 mmol/L (3.5-5.5); Sodium, Blood 135 mmol/L (136-145)
--- NOTE | 2024-03-21 06:46 | NUR ---
CLIENT COORDINATOR SUMMARY NO ACUTE CHANGES OVERNIGHT. PT APPEARED TO SLEEP WELL AND HER PAIN WAS WELL CONTROLLED. ANTICIPATING DIALYSIS TODAY WELL DISCHARGE PLANNING.
[2024-03-21] MEDS ORDERED: Polyethylene Glycol 3350 17 gm PO PRN (09:45)
[2024-03-21] MEDS ORDERED: B-COMPLEX WITH1 EAC2 PO (11:37)
[2024-03-21] MEDS ORDERED: MASOPHEN325 M4 PO (11:37)
[2024-03-21] MEDS ORDERED: CARV6.25 PO (11:38)
[2024-03-21] MEDS ORDERED: CATAPRES0.1 MG PO (11:38)
[2024-03-21] MEDS ORDERED: HYDRA25 PO (11:41)
[2024-03-21] MEDS ORDERED: OXYC5 PO (11:42)
[2024-03-21] MEDS ORDERED: MIRALAX17 GM PO (11:42)
[2024-03-21] MEDS ORDERED: LIQUACEL PO (11:44)
[2024-03-21] MEDS ORDERED: SENN187 PO (11:44)
--- NOTE | 2024-03-21 14:05 | NUR ---
SHIFT/DISCHARGE SUMMARY: PATIENT A/OX4, PLEASANT AND COOPERATIVE c CARE. PATIENT MEDICATED FOR PAIN TO NECK/HIP PER EMAR c GOOD RELIEF. PATIENT REPORTS APPETITE HAS IMPROVED. SOME OF HER SCHEDULED MEDS WAS HELD THIS AM D/T SCHEDULED DIALYSIS AT 0900. PATIENT DID HER DIALYSIS c A 1000 MLS NET HD FLUID WAS REMOVED, TOLERATING WELL. PATIENT DENIES CP/PRESSURE, N/V, SOB AND DIZZINESS. PATIENT SAT UP IN THE CHAIR FOR BREAKFAST AND LUNCH, ATE 90% FOR LUNCH. PATIENT HAS NO COMPLAINTS OR DENIES NEW CONCERNED THIS SHIFT. PIV TO [facility] DC'D. PATIENT DISCHARGE HOME c SERVICES. DISCHARGE INSTRUCTIONS PACKET GIVEN TO PATIENT. EDUCATED PATIENT REGARDING ADMITTING DX'S OF DIARRHEA, S/S, TX, NEW PRESCRIBED RX, F/U c PCP AND TELETYPESETTER. PATIENT AND SPOUSE VERBALIZED UNDERSTANDING AND NO FURTHER QUESTIONS. RX WAS FAXED TO PATIENT PREFERRED PHARMACY-[facility]. ALL PATIENT PERSONAL BELONGINGS WERE SENT HOME c THE PATIENT. PATIENT LEFT THE ROOM AT 1403, TRANSPORTED VIA WHEELCHAIR BY MONIQUE GUTIERREZ TO PATIENT ENTRANCE.
[2024-03-21] MEDS ORDERED: Sennosides 8.6 MG Tab PO SCH (21:00)
== END 2024-03-21 14:03 | disposition home or self-care (01) ==
LOC: MEDS 14:21 → ENPENDDIS 03-21 11:29 → MEDS 03-21 14:03
PROVIDERS: Hospitalist; Internal Medicine; ADMIT Internal Medicine
DX: R63.4 Abnormal weight loss (principal); E11.22 Type 2 diabetes mellitus with diabetic chronic kidney disease; I12.0 Hypertensive chronic kidney disease with stage 5 chronic kidney disease or end stage renal disease; N18.6 End stage renal disease; E03.9 Hypothyroidism, unspecified; E43 Unspecified severe protein-calorie malnutrition; D64.9 Anemia, unspecified; G47.33 Obstructive sleep apnea (adult) (pediatric); I25.2 Old myocardial infarction; Z94.1 Heart transplant status; Z79.4 Long term (current) use of insulin; Z79.899 Other long term (current) drug therapy; Z86.73 Personal history of transient ischemic attack (TIA), and cerebral infarction without residual deficits; Z99.2 Dependence on renal dialysis; Z99.89 Dependence on other enabling machines and devices; W19.XXXA Unspecified fall, initial encounter
CPT/HCPCS: 36415; 72220; 80053; 80069; 82533; 82947; 83540; 83550; 83735; 84100; 84134; 84443; 85025; 94760; 96372; 96374; 96375; 96376; 97110; 97116; 97162; 97166; A9270; G0257; G0378; G0379; J1644; J2405; J7507; J7518; Q0167; Q5106

== ENCOUNTER 2024-03-25 10:13 | Emergency (ER) | payer MEDICARE, OTHER ==
[~2024-03-25] VITALS: Ht 160 cm; Wt 60.3 kg
[~2024-03-25 10:13] MED LIST changes: +B-COMPLEX WITH1 EAC2 PO; +CARV6.25 PO; +HYDRA25 PO; +LIQUACEL PO; +MASOPHEN325 M4 PO; +METO100 PO; +MIRALAX17 GM PO; +Ranitidine HCl150 M1 PO; +SENN187 PO
[2024-03-25] MEDS ORDERED: OxyCODONE HCL 5 MG TAB PO ONE (10:35)
[2024-03-25 11:15] LABS: BASOPHILS ABSOLUTE AUTO 0.07 K/mm3 (0.00-0.23); BASOPHILS PERCENT AUTO 1 % (0-2); EOSINOPHILS ABSOLUTE AUTO 0.12 K/mm3 (0.00-0.68); EOSINOPHILS PERCENT AUTO 1 % (0-6); Hematocrit 32.6 % (33.0-51.0); Hemoglobin 10.3 g/dL (11.5-16.0); IMMATURE GRAN ABSOLUTE AUTO 0.03 K/mm3 (0.00-0.10); IMMATURE GRAN PERCENT AUTO 0 % (0-1); LYMPHOCYTES ABSOLUTE AUTO 2.54 K/mm3 (0.84-5.20); LYMPHOCYTES PERCENT AUTO 28 % (21-46); MONOCYTES ABSOLUTE AUTO 1.43 K/mm3 (0.16-1.47); MONOCYTES PERCENT AUTO 16 % (4-13); Mean Corpuscular HGB Conc 31.6 g/dL (31.5-36.5); Mean Corpuscular Volume 92 fL (80-100); Mean Platelet Volume 9.7 fL (9.1-12.4); NEUTROPHILS ABSOLUTE AUTO 4.91 K/mm3 (1.96-9.15); NEUTROPHILS PERCENT AUTO 54 % (41-73); Platelet Count 365 K/mm3 (150-400); RDW Coefficient Variation 15.8 % (11.7-14.2); RDW Standard Deviation 52.5 fL (35.1-46.3); Red Blood Cell Count 3.55 M/mm3 (3.80-5.20)
[2024-03-25 11:30] LABS: Albumin, Blood 2.5 g/dL (3.4-5.0); Albumin/Globulin Ratio 0.6 (0.8-1.8); Bilirubin, Total 0.5 mg/dL (0.1-1.0); Bun/Creatinine Ratio 4.4 (12.0-20.0); Calcium, Blood 9.4 mg/dL (8.5-10.1); Creatinine, Blood 4.28 mg/dL (0.40-1.00); Globulin, Blood 4.3 g/dL (2.2-4.0); Potassium, Blood 4.5 mmol/L (3.5-5.5); Total Protein, Blood 6.8 g/dL (6.4-8.2)
[2024-03-25 12:15] VITALS: BP 165/85
[2024-03-25] MEDS ORDERED: PROM25 PO (12:17)
== END 2024-03-25 12:57 | disposition home or self-care (01) ==
LOC: ER 10:13
PROVIDERS: Emergency Medicine
DX: F41.9 Anxiety disorder, unspecified (principal); R53.1 Weakness; R11.0 Nausea; I13.2 Hypertensive heart and chronic kidney disease with heart failure and with stage 5 chronic kidney disease, or end stage renal disease; N18.6 End stage renal disease; E11.22 Type 2 diabetes mellitus with diabetic chronic kidney disease; I25.2 Old myocardial infarction; E78.5 Hyperlipidemia, unspecified; E03.9 Hypothyroidism, unspecified; Z79.4 Long term (current) use of insulin; Z79.899 Other long term (current) drug therapy; Z88.2 Allergy status to sulfonamides; Z88.8 Allergy status to other drugs, medicaments and biological substances
CPT/HCPCS: 71045; 80053; 83690; 85025; 99284-25; A9270

== ENCOUNTER 2024-04-26 14:45 | Emergency (ER) | payer MEDICARE, OTHER ==
[~2024-04-26] VITALS: Ht 162.6 cm; Wt 60.3 kg
[2024-04-26 15:48] LABS: BASOPHILS ABSOLUTE AUTO 0.05 K/mm3 (0.00-0.23); BASOPHILS PERCENT AUTO 1 % (0-2); EOSINOPHILS ABSOLUTE AUTO 0.06 K/mm3 (0.00-0.68); EOSINOPHILS PERCENT AUTO 1 % (0-6); Hematocrit 32.6 % (33.0-51.0); IMMATURE GRAN ABSOLUTE AUTO 0.02 K/mm3 (0.00-0.10); IMMATURE GRAN PERCENT AUTO 0 % (0-1); LYMPHOCYTES ABSOLUTE AUTO 1.78 K/mm3 (0.84-5.20); LYMPHOCYTES PERCENT AUTO 23 % (21-46); MONOCYTES ABSOLUTE AUTO 1.18 K/mm3 (0.16-1.47); MONOCYTES PERCENT AUTO 15 % (4-13); Mean Corpuscular HGB 28.4 pg (26.0-34.0); Mean Corpuscular HGB Conc 30.7 g/dL (31.5-36.5); Mean Corpuscular Volume 93 fL (80-100); Mean Platelet Volume 9.3 fL (9.1-12.4); NEUTROPHILS ABSOLUTE AUTO 4.59 K/mm3 (1.96-9.15); NEUTROPHILS PERCENT AUTO 60 % (41-73); Platelet Count 357 K/mm3 (150-400); RDW Coefficient Variation 15.9 % (11.7-14.2); RDW Standard Deviation 52.6 fL (35.1-46.3); Red Blood Cell Count 3.52 M/mm3 (3.80-5.20); White Blood Cell Count 7.68 K/mm3 (4.00-11.30)
[2024-04-26 16:08] LABS: Albumin/Globulin Ratio 0.8 (0.8-1.8); Bilirubin, Total 0.5 mg/dL (0.1-1.0); Bun/Creatinine Ratio 7.8 (12.0-20.0); Calcium, Blood 9.1 mg/dL (8.5-10.1); Creatinine, Blood 4.09 mg/dL (0.40-1.00); Potassium, Blood 4.5 mmol/L (3.5-5.5)
[2024-04-26 17:30] VITALS: BP 169/88
== END 2024-04-26 17:49 | disposition home or self-care (01) ==
LOC: ER 14:45
PROVIDERS: Emergency Medicine
DX: R06.00 Dyspnea, unspecified (principal); E11.22 Type 2 diabetes mellitus with diabetic chronic kidney disease; I12.0 Hypertensive chronic kidney disease with stage 5 chronic kidney disease or end stage renal disease; N18.6 End stage renal disease; Z86.73 Personal history of transient ischemic attack (TIA), and cerebral infarction without residual deficits; Z95.5 Presence of coronary angioplasty implant and graft; Z87.891 Personal history of nicotine dependence; Z99.2 Dependence on renal dialysis
CPT/HCPCS: 71046; 80053; 83880; 84484; 85025; 93005; 93010; 99285-25

== ENCOUNTER 2024-05-30 14:47 | Observation (INO) | payer MEDICARE, OTHER ==
[~2024-05-30] VITALS: Ht 160 cm; Wt 60.3 kg
[2024-05-30 16:05] LABS: BASOPHILS ABSOLUTE AUTO 0.02 K/mm3 (0.00-0.23); BASOPHILS PERCENT AUTO 0 % (0-2); EOSINOPHILS ABSOLUTE AUTO 0.04 K/mm3 (0.00-0.68); EOSINOPHILS PERCENT AUTO 1 % (0-6); Hematocrit 30.4 % (33.0-51.0); Hemoglobin 9.8 g/dL (11.5-16.0); IMMATURE GRAN ABSOLUTE AUTO 0.02 K/mm3 (0.00-0.10); IMMATURE GRAN PERCENT AUTO 0 % (0-1); LYMPHOCYTES ABSOLUTE AUTO 1.48 K/mm3 (0.84-5.20); LYMPHOCYTES PERCENT AUTO 22 % (21-46); MONOCYTES PERCENT AUTO 11 % (4-13); Mean Corpuscular HGB 28.5 pg (26.0-34.0); Mean Corpuscular HGB Conc 32.2 g/dL (31.5-36.5); Mean Corpuscular Volume 88 fL (80-100); Mean Platelet Volume 10.1 fL (9.1-12.4); NEUTROPHILS ABSOLUTE AUTO 4.36 K/mm3 (1.96-9.15); NEUTROPHILS PERCENT AUTO 66 % (41-73); Platelet Count 209 K/mm3 (150-400); RDW Coefficient Variation 15.1 % (11.7-14.2); Red Blood Cell Count 3.44 M/mm3 (3.80-5.20); White Blood Cell Count 6.62 K/mm3 (4.00-11.30)
[2024-05-30 16:25] LABS: Albumin, Blood 2.7 g/dL (3.4-5.0); Albumin/Globulin Ratio 0.8 (0.8-1.8); Bilirubin, Total 0.5 mg/dL (0.1-1.0); Bun/Creatinine Ratio 6.3 (12.0-20.0); Calcium, Blood 8.4 mg/dL (8.5-10.1); Creatinine, Blood 3.82 mg/dL (0.40-1.00); Globulin, Blood 3.4 g/dL (2.2-4.0); Magnesium, Blood 1.7 mg/dL (1.6-2.4); Phosphorus, Blood 2.1 mg/dL (2.5-4.9); Potassium, Blood 3.4 mmol/L (3.5-5.5); Total Protein, Blood 6.1 g/dL (6.4-8.2)
[2024-05-30] MEDS ORDERED: Potassium Phosphate,Monobasic 500 MG Tablet PO ONE (17:40)
[2024-05-30 20:03] LABS: Base Excess Venous 12.1 mmol/L; Bicarbonate Venous 34.4 mmol/L (24.0-30.0); PCO2 Venous 50.7 mmHg (38-42); pH Blood Venous 7.46 (7.34-7.37)
[2024-05-30] MEDS ORDERED: FLU VACC TS2024-25(6MOS UP)/PF 45 MCG/0.5 ML SYRINGE IM ONE (20:35)
[2024-05-30] MEDS ORDERED: Acetaminophen 325 MG TABLET PO PRN (20:45)
[2024-05-30] MEDS ORDERED: CloNIDine 0.1 MG Tab PO PRN (20:50)
[2024-05-30] MEDS ORDERED: TraZODone HCl 50 MG Tab PO PRN (20:50)
[2024-05-30] MEDS ORDERED: Promethazine HCl 25 MG Tab PO PRN (20:55)
[2024-05-30] MEDS ORDERED: Polyethylene Glycol 3350 17 gm PO PRN (20:55)
[2024-05-30] MEDS ORDERED: Mycophenolate Sodium 180 MG Tablet DR PO SCH (21:00)
[2024-05-30] MEDS ORDERED: Protein Supplement 30 ML UD PO SCH (21:00)
[2024-05-30] MEDS ORDERED: Insulin Human Lispro 100 Units/ML 3ML Syringe SC SCH (21:00)
[2024-05-30] MEDS ORDERED: HydrALAZINE HCl 25 MG Tab PO SCH (21:00)
[2024-05-30] MEDS ORDERED: Sennosides 8.6 MG Tab PO SCH (21:00)
[2024-05-30] MEDS ORDERED: Tacrolimus 1 MG Cap PO SCH (21:00)
[2024-05-30] MEDS ORDERED: Lactobacil 2-S.Thermo-Bifido 1 1 Cap PO SCH (21:00)
[2024-05-30 22:30] VITALS: BP 157/70
[2024-05-31 04:05] VITALS: BP 147/76
[2024-05-31 05:06] LABS: BASOPHILS ABSOLUTE AUTO 0.03 K/mm3 (0.00-0.23); BASOPHILS PERCENT AUTO 0 % (0-2); EOSINOPHILS ABSOLUTE AUTO 0.09 K/mm3 (0.00-0.68); EOSINOPHILS PERCENT AUTO 1 % (0-6); Hematocrit 31.3 % (33.0-51.0); Hemoglobin 9.9 g/dL (11.5-16.0); IMMATURE GRAN ABSOLUTE AUTO 0.03 K/mm3 (0.00-0.10); IMMATURE GRAN PERCENT AUTO 0 % (0-1); LYMPHOCYTES ABSOLUTE AUTO 2.11 K/mm3 (0.84-5.20); LYMPHOCYTES PERCENT AUTO 27 % (21-46); MONOCYTES ABSOLUTE AUTO 0.75 K/mm3 (0.16-1.47); MONOCYTES PERCENT AUTO 9 % (4-13); Mean Corpuscular HGB Conc 31.6 g/dL (31.5-36.5); Mean Corpuscular Volume 89 fL (80-100); Mean Platelet Volume 10.1 fL (9.1-12.4); NEUTROPHILS ABSOLUTE AUTO 4.96 K/mm3 (1.96-9.15); NEUTROPHILS PERCENT AUTO 62 % (41-73); Platelet Count 232 K/mm3 (150-400); RDW Coefficient Variation 14.9 % (11.7-14.2); RDW Standard Deviation 48.4 fL (35.1-46.3); Red Blood Cell Count 3.53 M/mm3 (3.80-5.20); White Blood Cell Count 7.97 K/mm3 (4.00-11.30)
[2024-05-31 05:41] LABS: Albumin, Blood 2.8 g/dL (3.4-5.0); Albumin/Globulin Ratio 0.8 (0.8-1.8); Bilirubin, Total 0.4 mg/dL (0.1-1.0); Bun/Creatinine Ratio 6.7 (12.0-20.0); Calcium, Blood 9.1 mg/dL (8.5-10.1); Creatinine, Blood 5.11 mg/dL (0.40-1.00); Globulin, Blood 3.5 g/dL (2.2-4.0); Phosphorus, Blood 3.1 mg/dL (2.5-4.9); Potassium, Blood 3.7 mmol/L (3.5-5.5); Total Protein, Blood 6.3 g/dL (6.4-8.2)
[2024-05-31] MEDS ORDERED: Levothyroxine Sodium 0.025 MG Tab PO SCH (06:00)
[2024-05-31] MEDS ORDERED: Vitamin B Cmplx/Vit C/Folic Ac 1 Tab PO SCH (06:00)
[2024-05-31 07:26] VITALS: BP 143/72
[2024-05-31] MEDS ORDERED: Carvedilol 6.25 MG Tab PO SCH (08:00)
[2024-05-31] MEDS ORDERED: LamoTRIgine 100 MG Tab PO SCH (09:00)
[2024-05-31] MEDS ORDERED: AmLODIPine Besylate 5 MG Tab PO SCH (09:00)
[2024-05-31] MEDS ORDERED: Clopidogrel Bisulfate 75 MG Tab PO SCH (09:00)
[2024-05-31] MEDS ORDERED: Atorvastatin 40 MG Tab PO SCH (09:00)
[2024-05-31] MEDS ORDERED: Clotrimazole 1% Cream 15 GM Tube TOP SCH (09:00)
[2024-05-31] MEDS ORDERED: Ezetimibe 10 MG Tab PO SCH ×2 (09:00→21:00)
[2024-05-31] MEDS ORDERED: Heparin Sodium 5000 Units/ML 1ML MDV SC SCH (09:00)
[2024-05-31] MEDS ORDERED: FLUoxetine HCL 20 MG CAP PO SCH (09:00)
[2024-05-31] MEDS ORDERED: Tacrolimus 1 MG Cap PO SCH (09:00)
[2024-05-31] MEDS ORDERED: Cholecalciferol 1000 Unit Tablet (=25MCG) PO SCH (09:00)
[2024-05-31 14:16] VITALS: BP 137/72
[2024-05-31 16:31] VITALS: BP 144/71
--- NOTE | 2024-05-31 18:16 | NUR ---
PT PLEASANT TODAY. SHE STATES FEELS STILL NOT PULLING THOUGHTS TOGETHER SHOULD. HUSB STATES SEEMS CORRECT. NO DIALYSIS TODAY. TAKING MEDS APPROP. MINIMAL FOOD INTAKE. AT BEDSIDE MUCH OF DAY. NO NEW CONCERNS NOTED TODAY. BED IN LOW POSITION CALL LITE IN REACH, CALLS APPROP
[2024-05-31 19:46] VITALS: BP 148/74
[2024-06-01] MEDS ORDERED: Loperamide HCl 2 MG Cap PO PRN (03:20)
--- NOTE | 2024-06-01 03:22 | NUR ---
NEW T-ORDER RECEIVED FROM THE ON-CALL HOSPITALIST DR. NELSON: IMODIUM PO 2MG Q3HRS PRN. ENTERED TO [facility], SEE EMAR. NO ADDITIONAL NEW ORDERS AT THIS TIME.
--- NOTE | 2024-06-01 04:03 | NUR ---
SHIFT SUMMARY PT IS A&O X3-4, ABLE TO MAKE HER NEEDS KNOWN AND COOPERATIVE WITH CARE. PT APPEARS LESS CONFUSED COMPARED TO PREVIOUS NOC SHIFT. PT C/O >3DAYS OF DIARRHEA. NEW T-ORDER FROM ON-CALL HOSPITALIST DR. NELSON FOR PO PRN IMODIUM (SEE PREVIOUS NOTE). ADMINISTERED ORDERED. PT HAD 1X DIARRHEA DURING EARLY AM HRS. PT IS SBA WITH FWW TO THE RESTROOM. THIS BARKEEP SPOKE ON THE PHONE WITH PT'S DAUGHTER IKER PER HER REQUEST FOR AN UPDATE. NO ACUTE EVENTS DURING THIS SHIFT. BED AT THE LOWEST POSITION, CALL LIGHT WITHIN REACH.
[2024-06-01 07:49] VITALS: BP 155/82
[2024-06-01] MEDS ORDERED: IMODIUM A-D2 M1 PO (12:53)
[2024-06-01] MEDS ORDERED: LIQUACEL PO (12:54)
== END 2024-06-01 14:05 | disposition home health service (06) ==
LOC: ER 14:47 → MEDS 14:48
PROVIDERS: Student in an Organized Health Care Education/Training Program; ADMIT Student in an Organized Health Care Education/Training Program
DX: G92.8 Other toxic encephalopathy (principal); I13.2 Hypertensive heart and chronic kidney disease with heart failure and with stage 5 chronic kidney disease, or end stage renal disease; E11.22 Type 2 diabetes mellitus with diabetic chronic kidney disease; N18.6 End stage renal disease; I50.9 Heart failure, unspecified; E11.65 Type 2 diabetes mellitus with hyperglycemia; D63.8 Anemia in other chronic diseases classified elsewhere; I25.10 Atherosclerotic heart disease of native coronary artery without angina pectoris; I25.2 Old myocardial infarction; E89.0 Postprocedural hypothyroidism; G47.33 Obstructive sleep apnea (adult) (pediatric); Z99.2 Dependence on renal dialysis; Z79.890 Hormone replacement therapy; Z79.02 Long term (current) use of antithrombotics/antiplatelets; Z79.4 Long term (current) use of insulin; Z79.899 Other long term (current) drug therapy; Z88.2 Allergy status to sulfonamides; Z88.8 Allergy status to other drugs, medicaments and biological substances; Z86.73 Personal history of transient ischemic attack (TIA), and cerebral infarction without residual deficits; Z95.5 Presence of coronary angioplasty implant and graft; Z87.891 Personal history of nicotine dependence; Z90.49 Acquired absence of other specified parts of digestive tract
CPT/HCPCS: 36415; 70450; 80053; 82803; 82947; 83735; 84100; 84484; 85025; 87040; 93005; 93010; 96372; 97110; 97112; 97161; 97165; 97530-CQ; 99285-25; A9270; G0378; J1644; J7507; J7518

== ENCOUNTER 2024-06-03 17:15 | Emergency (ER) | payer MEDICARE, OTHER ==
[~2024-06-03] VITALS: Ht 160 cm; Wt 60.3 kg
[~2024-06-03 17:15] MED LIST changes: +IMODIUM A-D2 M1 PO
[2024-06-03] MEDS ORDERED: OxyCODONE HCL 5 MG TAB PO ONE (19:20)
[2024-06-03] MEDS ORDERED: Acetaminophen 500 MG Tab PO ONE (20:55)
[2024-06-03] MEDS ORDERED: OxyCODONE HCL 5 MG TAB PO PRN (21:15)
[2024-06-04] MEDS ORDERED: Mycophenolate Sodium 180 MG Tablet DR PO ONE ×2 (08:25→21:00)
[2024-06-04] MEDS ORDERED: Tacrolimus 1 MG Cap PO ONE ×3 (08:25→18:40)
[2024-06-04] MEDS ORDERED: Acetaminophen 500 MG Tab PO PRN (11:10)
[2024-06-04 18:07] VITALS: BP 179/88
[2024-06-04] MEDS ORDERED: TraZODone HCl 50 MG Tab PO ONE (21:00)
[2024-06-04] MEDS ORDERED: CloNIDine 0.1 MG Tab PO ONE (21:00)
[2024-06-04] MEDS ORDERED: Ezetimibe 10 MG Tab PO ONE (21:00)
[2024-06-05] MEDS ORDERED: CloNIDine 0.1 MG Tab PO ONE (01:00)
== END 2024-06-05 08:00 ==
LOC: ER 17:15
DX: S42.214A Unspecified nondisplaced fracture of surgical neck of right humerus, initial encounter for closed fracture (principal); S00.81XA Abrasion of other part of head, initial encounter; E11.22 Type 2 diabetes mellitus with diabetic chronic kidney disease; I25.2 Old myocardial infarction; I13.0 Hypertensive heart and chronic kidney disease with heart failure and stage 1 through stage 4 chronic kidney disease, or unspecified chronic kidney disease; I50.9 Heart failure, unspecified; E03.9 Hypothyroidism, unspecified; N18.6 End stage renal disease; W06.XXXA Fall from bed, initial encounter; Z87.891 Personal history of nicotine dependence; Z86.73 Personal history of transient ischemic attack (TIA), and cerebral infarction without residual deficits; Z79.899 Other long term (current) drug therapy; Z79.4 Long term (current) use of insulin; Z79.02 Long term (current) use of antithrombotics/antiplatelets; Z88.2 Allergy status to sulfonamides; Z88.8 Allergy status to other drugs, medicaments and biological substances; Z91.048 Other nonmedicinal substance allergy status
CPT/HCPCS: 70450; 73060; 99285-25; A9270; J7507; J7518

== ENCOUNTER 2024-06-06 01:43 | Emergency (ER) | payer MEDICARE, OTHER ==
[~2024-06-06] VITALS: Ht 160 cm; Wt 60.0 kg
[2024-06-06 02:06] VITALS: BP 148/88
== END 2024-06-06 02:26 | disposition home or self-care (01) ==
LOC: ER 01:43
DX: I13.0 Hypertensive heart and chronic kidney disease with heart failure and stage 1 through stage 4 chronic kidney disease, or unspecified chronic kidney disease (principal); E11.22 Type 2 diabetes mellitus with diabetic chronic kidney disease; I50.9 Heart failure, unspecified; N18.9 Chronic kidney disease, unspecified; I25.2 Old myocardial infarction; Z95.5 Presence of coronary angioplasty implant and graft; Z88.2 Allergy status to sulfonamides; Z88.8 Allergy status to other drugs, medicaments and biological substances; Z79.890 Hormone replacement therapy; Z79.899 Other long term (current) drug therapy; Z79.4 Long term (current) use of insulin; Z87.891 Personal history of nicotine dependence; Z99.2 Dependence on renal dialysis
CPT/HCPCS: 99283

== ENCOUNTER 2024-06-07 05:48 | Emergency (ER) | payer MEDICARE, OTHER ==
[~2024-06-07] VITALS: Ht 160 cm; Wt 60.3 kg
[2024-06-07] MEDS ORDERED: Morphine Sulfate 4 MG/1 ML Injection IV ONE (07:05)
[2024-06-07 07:30] VITALS: BP 158/88
== END 2024-06-07 08:30 | disposition home or self-care (01) ==
LOC: ER 05:48
DX: I13.2 Hypertensive heart and chronic kidney disease with heart failure and with stage 5 chronic kidney disease, or end stage renal disease (principal); I50.9 Heart failure, unspecified; N18.6 End stage renal disease; E03.9 Hypothyroidism, unspecified; I25.2 Old myocardial infarction; E78.5 Hyperlipidemia, unspecified; Z79.899 Other long term (current) drug therapy; Z79.02 Long term (current) use of antithrombotics/antiplatelets; Z79.4 Long term (current) use of insulin; Z88.2 Allergy status to sulfonamides; Z88.8 Allergy status to other drugs, medicaments and biological substances
CPT/HCPCS: 93005; 93010; 96374; 99283-25; J2270

== ENCOUNTER 2024-06-13 16:10 | Emergency (ER) | payer MEDICARE, OTHER ==
[~2024-06-13] VITALS: Ht 160 cm; Wt 60.8 kg
[2024-06-13] MEDS ORDERED: Morphine Sulfate 4 MG/1 ML Injection IV ONE (17:50)
[2024-06-13] MEDS ORDERED: Ondansetron HCl 2 MG / ML 2ML Vial IV ONE (17:50)
[2024-06-13] MEDS ORDERED: Acetaminophen 500 MG Tab PO ONE (17:50)
[2024-06-13 18:04] LABS: BASOPHILS ABSOLUTE AUTO 0.03 K/mm3 (0.00-0.23); BASOPHILS PERCENT AUTO 0 % (0-2); EOSINOPHILS ABSOLUTE AUTO 0.15 K/mm3 (0.00-0.68); EOSINOPHILS PERCENT AUTO 2 % (0-6); Hematocrit 32.1 % (33.0-51.0); Hemoglobin 10.3 g/dL (11.5-16.0); IMMATURE GRAN ABSOLUTE AUTO 0.03 K/mm3 (0.00-0.10); IMMATURE GRAN PERCENT AUTO 0 % (0-1); LYMPHOCYTES ABSOLUTE AUTO 1.28 K/mm3 (0.84-5.20); LYMPHOCYTES PERCENT AUTO 16 % (21-46); MONOCYTES ABSOLUTE AUTO 0.87 K/mm3 (0.16-1.47); MONOCYTES PERCENT AUTO 11 % (4-13); Mean Corpuscular HGB 27.5 pg (26.0-34.0); Mean Corpuscular HGB Conc 32.1 g/dL (31.5-36.5); Mean Corpuscular Volume 86 fL (80-100); Mean Platelet Volume 9.5 fL (9.1-12.4); NEUTROPHILS ABSOLUTE AUTO 5.53 K/mm3 (1.96-9.15); NEUTROPHILS PERCENT AUTO 70 % (41-73); Platelet Count 340 K/mm3 (150-400); RDW Coefficient Variation 13.9 % (11.7-14.2); RDW Standard Deviation 43.4 fL (35.1-46.3); Red Blood Cell Count 3.74 M/mm3 (3.80-5.20); White Blood Cell Count 7.89 K/mm3 (4.00-11.30)
[2024-06-13 18:29] LABS: Albumin, Blood 2.7 g/dL (3.4-5.0); Albumin/Globulin Ratio 0.7 (0.8-1.8); Bilirubin, Total 0.5 mg/dL (0.1-1.0); Bun/Creatinine Ratio 6.7 (12.0-20.0); Calcium, Blood 9.6 mg/dL (8.5-10.1); Creatinine, Blood 4.34 mg/dL (0.40-1.00); Globulin, Blood 3.9 g/dL (2.2-4.0); Potassium, Blood 4.5 mmol/L (3.5-5.5); Total Protein, Blood 6.6 g/dL (6.4-8.2)
[2024-06-13] MEDS ORDERED: HydrALAZINE HCl 20 MG / ML 1ML Vial IV ONE (19:10)
[2024-06-13] MEDS ORDERED: Azithromycin 250 MG Tab PO ONE (21:05)
[2024-06-13] MEDS ORDERED: Amoxicillin/Clavulanate K 875 MG Tab PO ONE (21:05)
[2024-06-13] MEDS ORDERED: HYDR10 PO (21:19)
[2024-06-13] MEDS ORDERED: AZIT250 PO (21:19)
[2024-06-13] MEDS ORDERED: AMOCLA875 PO (21:19)
[2024-06-13 21:59] VITALS: BP 167/89
== END 2024-06-13 22:53 | disposition home or self-care (01) ==
LOC: ER 16:10
PROVIDERS: Student in an Organized Health Care Education/Training Program
DX: I13.2 Hypertensive heart and chronic kidney disease with heart failure and with stage 5 chronic kidney disease, or end stage renal disease (principal); J18.9 Pneumonia, unspecified organism; I50.9 Heart failure, unspecified; E11.22 Type 2 diabetes mellitus with diabetic chronic kidney disease; N18.6 End stage renal disease; I25.2 Old myocardial infarction; E78.5 Hyperlipidemia, unspecified; E03.9 Hypothyroidism, unspecified; Z86.73 Personal history of transient ischemic attack (TIA), and cerebral infarction without residual deficits; Z94.1 Heart transplant status; Z87.891 Personal history of nicotine dependence; Z99.2 Dependence on renal dialysis; Z96.41 Presence of insulin pump (external) (internal); Z90.49 Acquired absence of other specified parts of digestive tract; Z88.8 Allergy status to other drugs, medicaments and biological substances; Z88.2 Allergy status to sulfonamides; Z79.890 Hormone replacement therapy; Z79.01 Long term (current) use of anticoagulants; Z79.899 Other long term (current) drug therapy
CPT/HCPCS: 71045; 80053; 84484; 85025; 93005; 93010; 96374; 96375; 99284-25; A9270; J0360; J2270; J2405

== ENCOUNTER 2024-06-25 17:24 | Emergency (ER) | payer MEDICARE, OTHER ==
[~2024-06-25] VITALS: Ht 160 cm; Wt 63.5 kg
[~2024-06-25 17:24] MED LIST changes: +AMOCLA875 PO; +HYDR10 PO
[2024-06-25 19:28] LABS: BASOPHILS ABSOLUTE AUTO 0.04 K/mm3 (0.00-0.23); BASOPHILS PERCENT AUTO 1 % (0-2); EOSINOPHILS ABSOLUTE AUTO 0.13 K/mm3 (0.00-0.68); EOSINOPHILS PERCENT AUTO 2 % (0-6); Hematocrit 26.3 % (33.0-51.0); Hemoglobin 8.5 g/dL (11.5-16.0); IMMATURE GRAN ABSOLUTE AUTO 0.02 K/mm3 (0.00-0.10); IMMATURE GRAN PERCENT AUTO 0 % (0-1); LYMPHOCYTES ABSOLUTE AUTO 1.14 K/mm3 (0.84-5.20); LYMPHOCYTES PERCENT AUTO 15 % (21-46); MONOCYTES ABSOLUTE AUTO 0.99 K/mm3 (0.16-1.47); MONOCYTES PERCENT AUTO 13 % (4-13); Mean Corpuscular HGB 27.2 pg (26.0-34.0); Mean Corpuscular HGB Conc 32.3 g/dL (31.5-36.5); Mean Corpuscular Volume 84 fL (80-100); Mean Platelet Volume 9.8 fL (9.1-12.4); NEUTROPHILS ABSOLUTE AUTO 5.28 K/mm3 (1.96-9.15); NEUTROPHILS PERCENT AUTO 70 % (41-73); Platelet Count 258 K/mm3 (150-400); RDW Coefficient Variation 13.6 % (11.7-14.2); RDW Standard Deviation 42.1 fL (35.1-46.3); Red Blood Cell Count 3.12 M/mm3 (3.80-5.20)
[2024-06-25 19:34] LABS: Base Excess Venous 7.4 mmol/L; Bicarbonate Venous 30.8 mmol/L (24.0-30.0); PCO2 Venous 36.8 mmHg (38-42); pH Blood Venous 7.52 (7.34-7.37)
[2024-06-25 19:39] LABS: Source, Urine Straight Cath
[2024-06-25 19:46] LABS: Appearance, Urine Clear (Clear); Bilirubin, Urine Neg (Neg); Blood, Urine 1+ (Neg); Glucose Qualitative, Urine 3+ (Neg); Ketones, Urine Neg (Neg); Leukocyte Esterase, Urine Neg (Neg); Nitrite, Urine Neg (Neg); Protein, Urine 4+ (Neg); Urobilinogen, Urine NORM (Normal)
[2024-06-25 19:54] LABS: Color, Urine Pale Yellow (P-Yellow)
[2024-06-25 19:56] LABS: Bacteria Rare /hpf; Squamous Epithelial Cells Few /hpf (Few); White Blood Cells, Urine 0-2 /hpf (0-5)
[2024-06-25 20:05] LABS: Albumin, Blood 2.5 g/dL (3.4-5.0); Albumin/Globulin Ratio 0.7 (0.8-1.8); Bilirubin, Total 0.4 mg/dL (0.1-1.0); Bun/Creatinine Ratio 9.7 (12.0-20.0); Calcium, Blood 9.3 mg/dL (8.5-10.1); Creatinine, Blood 3.19 mg/dL (0.40-1.00); Globulin, Blood 3.7 g/dL (2.2-4.0); Magnesium, Blood 2.1 mg/dL (1.6-2.4); Potassium, Blood 4.1 mmol/L (3.5-5.5); Total Protein, Blood 6.2 g/dL (6.4-8.2)
[2024-06-25] MEDS ORDERED: HYDRA25 PO (20:32)
[2024-06-25] MEDS ORDERED: CARVEDILOL25 M9 PO (20:34)
[2024-06-25 21:00] LABS: CORONAVIRUS COVID-19 AG Negative (NEGATIVE); INFLUENZA A AG Negative (NEGATIVE); INFLUENZA B AG Negative (NEGATIVE)
[2024-06-25 23:18] VITALS: BP 173/82
== END 2024-06-26 00:24 | disposition home or self-care (01) ==
LOC: ER 17:24
PROVIDERS: Student in an Organized Health Care Education/Training Program
DX: R41.0 Disorientation, unspecified (principal); I13.2 Hypertensive heart and chronic kidney disease with heart failure and with stage 5 chronic kidney disease, or end stage renal disease; N18.6 End stage renal disease; E11.22 Type 2 diabetes mellitus with diabetic chronic kidney disease; I50.9 Heart failure, unspecified; E03.9 Hypothyroidism, unspecified; Z79.899 Other long term (current) drug therapy; Z88.2 Allergy status to sulfonamides; Z88.8 Allergy status to other drugs, medicaments and biological substances
CPT/HCPCS: 29105; 51701; 70450; 71045; 80053; 81001; 82140; 82803; 83735; 85025; 87428-QW; 99285-25

== ENCOUNTER 2025-02-07 13:53 | Emergency (ER) | payer MEDICARE, OTHER ==
[~2025-02-07] VITALS: Ht 165.1 cm; Wt 79.4 kg
[~2025-02-07 13:53] MED LIST changes: +CARVEDILOL25 M9 PO; +HYDR100 PO
[2025-02-07 14:18] LABS: BASOPHILS ABSOLUTE AUTO 0.03 K/mm3 (0.00-0.23); BASOPHILS PERCENT AUTO 1 % (0-2); EOSINOPHILS ABSOLUTE AUTO 0.13 K/mm3 (0.00-0.68); EOSINOPHILS PERCENT AUTO 3 % (0-6); Hematocrit 30.4 % (33.0-51.0); Hemoglobin 9.3 g/dL (11.5-16.0); IMMATURE GRAN ABSOLUTE AUTO 0.01 K/mm3 (0.00-0.10); IMMATURE GRAN PERCENT AUTO 0 % (0-1); LYMPHOCYTES ABSOLUTE AUTO 1.07 K/mm3 (0.84-5.20); LYMPHOCYTES PERCENT AUTO 25 % (21-46); MONOCYTES ABSOLUTE AUTO 0.48 K/mm3 (0.16-1.47); MONOCYTES PERCENT AUTO 11 % (4-13); Mean Corpuscular HGB Conc 30.6 g/dL (31.5-36.5); Mean Corpuscular Volume 94 fL (80-100); NEUTROPHILS ABSOLUTE AUTO 2.51 K/mm3 (1.96-9.15); NEUTROPHILS PERCENT AUTO 59 % (41-73); NRBC ABSOLUTE 0.00 K/mm3 (0.00-0.02); NRBC Auto 0.0 /100 WBC (0.0-0.2); Platelet Count 198 K/mm3 (150-400); RDW Coefficient Variation 14.1 % (11.7-14.2); RDW Standard Deviation 48.9 fL (35.1-46.3)
[2025-02-07 14:37] LABS: Prothrombin Time Results 11.6 Sec (9.7-11.5)
[2025-02-07 14:50] LABS: Alanine Aminotransfer (ALT/SGP 17.0 U/L (12-78); Albumin, Blood 3.2 g/dL (3.4-5.0); Albumin/Globulin Ratio 1.0 (0.8-1.8); Anion Gap 8.0 mmol/L (3-11); Aspartate Aminotrans (AST/SGOT 17.0 U/L (12-37); Bilirubin, Total 0.4 mg/dL (0.1-1.0); Blood Urea Nitrogen 43.0 mg/dL (8-24); CO2, Blood 31.0 mmol/L (21-32); Calcium, Blood 8.9 mg/dL (8.5-10.1); Chloride, Blood 94.0 mmol/L (98-108); Creatinine, Blood 5.0 mg/dL (0.40-1.00); Globulin, Blood 3.3 g/dL (2.2-4.0); Glucose, Blood 174.0 mg/dL (70-99); Potassium, Blood 5.0 mmol/L (3.5-5.5); Sodium, Blood 128.0 mmol/L (136-145); Total Protein, Blood 6.5 g/dL (6.4-8.2)
[2025-02-07 14:58] LABS: Influenza A, PCR NEGATIVE (NEGATIVE); Influenza B, PCR NEGATIVE (NEGATIVE); Resp Syncytial Virus, PCR NEGATIVE (NEGATIVE); SARS-Cov-2 (COVID-19) PCR, MMC NEGATIVE (NEGATIVE)
[2025-02-07] MEDS ORDERED: NS 1,000 ML IV SCH (15:00)
[2025-02-07 16:30] VITALS: BP 144/72
== END 2025-02-07 16:45 | disposition home or self-care (01) ==
LOC: ER 13:53
PROVIDERS: Emergency Medicine
DX: R50.9 Fever, unspecified (principal); I13.2 Hypertensive heart and chronic kidney disease with heart failure and with stage 5 chronic kidney disease, or end stage renal disease; E11.22 Type 2 diabetes mellitus with diabetic chronic kidney disease; N18.6 End stage renal disease; I50.9 Heart failure, unspecified; I25.2 Old myocardial infarction; Z99.2 Dependence on renal dialysis; Z96.41 Presence of insulin pump (external) (internal); Z88.8 Allergy status to other drugs, medicaments and biological substances; Z20.822 Contact with and (suspected) exposure to COVID-19; Z79.899 Other long term (current) drug therapy; Z79.4 Long term (current) use of insulin; E78.5 Hyperlipidemia, unspecified; E03.9 Hypothyroidism, unspecified; Z87.891 Personal history of nicotine dependence
CPT/HCPCS: 71045; 74176; 80053; 85025; 85610; 85730; 87637; 93005; 93010; 99285-25; J7030

== ENCOUNTER 2025-04-17 16:32 | Emergency (ER) | payer MEDICARE, OTHER ==
[~2025-04-17] VITALS: Ht 160 cm; Wt 57.6 kg
[2025-04-17] MEDS ORDERED: HYDROmorphone HCl/Pf 1MG SYR IV ONE ×3 (16:40→21:20)
[2025-04-17] MEDS ORDERED: AMLO5 PO (16:41)
[2025-04-17] MEDS ORDERED: ENTRESTO 24 MG1 EACH PO (16:42)
[2025-04-17 17:22] LABS: BASOPHILS ABSOLUTE AUTO 0.04 K/mm3 (0.00-0.23); BASOPHILS PERCENT AUTO 0 % (0-2); EOSINOPHILS ABSOLUTE AUTO 0.05 K/mm3 (0.00-0.68); EOSINOPHILS PERCENT AUTO 1 % (0-6); Hematocrit 39.4 % (33.0-51.0); Hemoglobin 12.4 g/dL (11.5-16.0); IMMATURE GRAN ABSOLUTE AUTO 0.05 K/mm3 (0.00-0.10); IMMATURE GRAN PERCENT AUTO 1 % (0-1); LYMPHOCYTES ABSOLUTE AUTO 1.09 K/mm3 (0.84-5.20); LYMPHOCYTES PERCENT AUTO 12 % (21-46); MONOCYTES ABSOLUTE AUTO 0.73 K/mm3 (0.16-1.47); MONOCYTES PERCENT AUTO 8 % (4-13); Mean Corpuscular HGB Conc 31.5 g/dL (31.5-36.5); Mean Corpuscular Volume 91 fL (80-100); NEUTROPHILS ABSOLUTE AUTO 7.41 K/mm3 (1.96-9.15); NEUTROPHILS PERCENT AUTO 79 % (41-73); NRBC ABSOLUTE 0.00 K/mm3 (0.00-0.02); NRBC Auto 0.0 /100 WBC (0.0-0.2); Platelet Count 182 K/mm3 (150-400); RDW Coefficient Variation 12.4 % (11.7-14.2); RDW Standard Deviation 41.8 fL (35.1-46.3)
[2025-04-17 17:46] LABS: Alanine Aminotransfer (ALT/SGP 39.0 U/L (12-78); Albumin, Blood 4.1 g/dL (3.4-5.0); Albumin/Globulin Ratio 1.2 (0.8-1.8); Anion Gap 8.0 mmol/L (3-11); Aspartate Aminotrans (AST/SGOT 32.0 U/L (12-37); Bilirubin, Total 0.6 mg/dL (0.1-1.0); Blood Urea Nitrogen 35.0 mg/dL (8-24); CO2, Blood 32.0 mmol/L (21-32); Calcium, Blood 9.6 mg/dL (8.5-10.1); Chloride, Blood 98.0 mmol/L (98-108); Creatinine, Blood 3.94 mg/dL (0.40-1.00); Globulin, Blood 3.3 g/dL (2.2-4.0); Glucose, Blood 312.0 mg/dL (70-99); Potassium, Blood 4.2 mmol/L (3.5-5.5); Sodium, Blood 134.0 mmol/L (136-145); Total Protein, Blood 7.4 g/dL (6.4-8.2)
[2025-04-17 20:59] VITALS: BP 151/95
[2025-04-17] MEDS ORDERED: RX Prepack 6 Tabs Oxycodone 5mg UD ONE (21:50)
[2025-04-17] MEDS ORDERED: HYDR1TAB94 PO (21:50)
== END 2025-04-17 22:54 | disposition home or self-care (01) ==
LOC: ER 16:32
PROVIDERS: Student in an Organized Health Care Education/Training Program
DX: S32.591A Other specified fracture of right pubis, initial encounter for closed fracture (principal); S70.11XA Contusion of right thigh, initial encounter; I25.2 Old myocardial infarction; E11.22 Type 2 diabetes mellitus with diabetic chronic kidney disease; I13.2 Hypertensive heart and chronic kidney disease with heart failure and with stage 5 chronic kidney disease, or end stage renal disease; I50.9 Heart failure, unspecified; N18.6 End stage renal disease; E78.5 Hyperlipidemia, unspecified; E03.9 Hypothyroidism, unspecified; Z94.1 Heart transplant status; Z96.41 Presence of insulin pump (external) (internal); Z86.73 Personal history of transient ischemic attack (TIA), and cerebral infarction without residual deficits; Z87.891 Personal history of nicotine dependence; Z88.8 Allergy status to other drugs, medicaments and biological substances; Z88.2 Allergy status to sulfonamides; Z88.1 Allergy status to other antibiotic agents; Z79.890 Hormone replacement therapy; Z79.899 Other long term (current) drug therapy; W17.89XA Other fall from one level to another, initial encounter
CPT/HCPCS: 70450; 72131; 72192; 73030; 73502; 80053; 85025; 96374; 96376; 99284-25; A9270; J1171

== ENCOUNTER 2025-06-14 09:56 | Emergency (ER) | payer MEDICARE, OTHER ==
[~2025-06-14] VITALS: Ht 160 cm; Wt 57.6 kg
[~2025-06-14 09:56] MED LIST changes: +ENTRESTO 24 MG1 EACH PO; +HYDR1TAB94 PO
[2025-06-14 10:56] LABS: BASOPHILS ABSOLUTE AUTO 0.02 K/mm3 (0.00-0.23); BASOPHILS PERCENT AUTO 1 % (0-2); EOSINOPHILS ABSOLUTE AUTO 0.08 K/mm3 (0.00-0.68); EOSINOPHILS PERCENT AUTO 2 % (0-6); Hematocrit 38.4 % (33.0-51.0); Hemoglobin 11.9 g/dL (11.5-16.0); IMMATURE GRAN ABSOLUTE AUTO 0.01 K/mm3 (0.00-0.10); IMMATURE GRAN PERCENT AUTO 0 % (0-1); LYMPHOCYTES ABSOLUTE AUTO 0.90 K/mm3 (0.84-5.20); LYMPHOCYTES PERCENT AUTO 21 % (21-46); MONOCYTES ABSOLUTE AUTO 0.25 K/mm3 (0.16-1.47); MONOCYTES PERCENT AUTO 6 % (4-13); Mean Corpuscular HGB Conc 31.0 g/dL (31.5-36.5); Mean Corpuscular Volume 95 fL (80-100); NEUTROPHILS ABSOLUTE AUTO 2.94 K/mm3 (1.96-9.15); NEUTROPHILS PERCENT AUTO 70 % (41-73); NRBC ABSOLUTE 0.00 K/mm3 (0.00-0.02); NRBC Auto 0.0 /100 WBC (0.0-0.2); Platelet Count 145 K/mm3 (150-400); RDW Coefficient Variation 13.9 % (11.7-14.2); RDW Standard Deviation 48.7 fL (35.1-46.3)
[2025-06-14 11:07] LABS: Alanine Aminotransfer (ALT/SGP 34.0 U/L (12-78); Albumin, Blood 4.1 g/dL (3.4-5.0); Albumin/Globulin Ratio 1.1 (0.8-1.8); Anion Gap 12.0 mmol/L (3-11); Aspartate Aminotrans (AST/SGOT 29.0 U/L (12-37); Bilirubin, Total 0.7 mg/dL (0.1-1.0); Blood Urea Nitrogen 41.0 mg/dL (8-24); CO2, Blood 27.0 mmol/L (21-32); Calcium, Blood 9.3 mg/dL (8.5-10.1); Chloride, Blood 98.0 mmol/L (98-108); Creatinine, Blood 6.15 mg/dL (0.40-1.00); Globulin, Blood 3.8 g/dL (2.2-4.0); Glucose, Blood 236.0 mg/dL (70-99); Potassium, Blood 5.0 mmol/L (3.5-5.5); Sodium, Blood 132.0 mmol/L (136-145); Total Protein, Blood 7.9 g/dL (6.4-8.2)
[2025-06-14 13:34] LABS: CORONAVIRUS COVID-19 AG Negative (NEGATIVE)
[2025-06-14 14:15] VITALS: BP 178/93
== END 2025-06-14 14:20 | disposition home or self-care (01) ==
LOC: ER 09:56
PROVIDERS: Emergency Medicine
DX: R53.1 Weakness (principal); Z87.891 Personal history of nicotine dependence; Z88.8 Allergy status to other drugs, medicaments and biological substances; Z88.2 Allergy status to sulfonamides; Z88.1 Allergy status to other antibiotic agents; Z79.4 Long term (current) use of insulin; Z79.890 Hormone replacement therapy; Z79.899 Other long term (current) drug therapy; Z99.2 Dependence on renal dialysis
CPT/HCPCS: 70450; 80053; 84484; 85025; 87428-QW; 93005; 93010; 99285-25